=== PATIENT | female | born 1960 | race Caucasian/White ===

== ENCOUNTER → 2016-12-05 | Outpatient (CLI) | payer BC ==
--- NOTE | 2016-12-05 18:41 | US ---
EXAMINATION TYPE: US thyroid st tissue head/neck DATE OF EXAM: 12/05/2016 COMPARISON: NONE CLINICAL HISTORY: R22.1 Localized Swelling. swelling noted at sternal notch Scanned midline at area of fullness and no obvious abnormality seen. IMPRESSION: This limited exam fails to demonstrate any sonographic abnormality at the sternal notch which was the area of concern. The thyroid gland is symmetric in size.
== END | disposition home or self-care (01) ==
LOC: RADUSMAIN 17:59
PROVIDERS: ATTEND Family Medicine
DX: R22.1 Localized swelling, mass and lump, neck (principal)
CPT/HCPCS: 76536

== ENCOUNTER 2017-09-12 00:09 | Emergency (ER) | payer BC ==
--- NOTE | 2017-09-12 11:18 | XR ---
EXAMINATION TYPE: XR ankle complete LT DATE OF EXAM: 09/12/2017 COMPARISON: NONE HISTORY: Pain TECHNIQUE: 3 views of the left ankle are submitted for evaluation. FINDINGS: There is no evidence for fracture or dislocation. Ankle mortise is intact. Soft tissue swel ling laterally. IMPRESSION: 1. No evidence for acute fracture.
== END 2017-09-12 01:41 | disposition home or self-care (01) ==
LOC: EC 00:09
DX: S93.402A Sprain of unspecified ligament of left ankle, initial encounter (principal); Z88.2 Allergy status to sulfonamides; X50.1XXA Overexertion from prolonged static or awkward postures, initial encounter
CPT/HCPCS: 99283

== ENCOUNTER → 2017-09-25 | Outpatient (CLI) | payer BC ==
[2017-09-24 11:52] VITALS: BMI 25.6
[2017-09-25 13:48] VITALS: BP 144/87; PULSE 52; RESP 18; TEMP 98
--- NOTE | 2017-09-25 14:00 | P.CONS ---
History of Present Illness - Reason for Consult Consult date: 09/25/17 - Chief Complaint Abdominal wall pain - History of Present Illness This is a 56-year-old female with history of abdominal wall pain that started about 3 years ago after she had laparoscopic cholecystectomy . The pain gets worse in transitional positions when the patient places her abdominal muscles. The patient has been getting rectus sheath steroid injection at [facility] every 8 weeks with good results. She uses Lidoderm patches on her abdomen but she also give her very good relief of pain. 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 DRINKS 6 PACK OF BEER WEEKLY Past Drug Use History: None Reported - Past Family History Son(s) Family Medical History: Cancer Medications and Allergies Home Medications Medication Instructions Recorded Confirmed Type Atorvastatin Calcium [Lipitor] 20 mg PO HS 05/06/14 09/25/17 History Black Cohosh Root [Black Cohosh] 200 mg PO DAILY 05/06/14 09/25/17 History Cholecalciferol [Vitamin D3] 1,000 unit PO DAILY@1200 05/06/14 09/25/17 History Cyclobenzaprine [Flexeril] 10 mg PO HS 05/06/14 09/25/17 History Escitalopram [Lexapro] 20 mg PO HS 05/06/14 09/25/17 History Glucosamine-Chondr 500-400Mg 1 each PO DAILY 05/06/14 09/25/17 History Iron Polysaccharide Complex 150 mg PO SUTUWETHSA 05/06/14 09/25/17 History [Ferrex 150] Omeprazole 40 mg PO AC-BRKFST 05/06/14 09/25/17 History Pregabalin [Lyrica] 75 mg PO TID 05/06/14 09/25/17 History Vitamin E 1,000 unit PO DAILY 05/06/14 09/25/17 History Acetaminophen Tab [Tylenol] 500 mg PO HS 09/02/14 09/25/17 History Suvorexant [Belsomra] 10 mg PO HS PRN 09/02/14 09/25/17 History Bisoprolol Fumarate [Zebeta] 10 mg PO DAILY 09/24/17 09/25/17 History DULoxetine HCL [Cymbalta] 30 mg PO BID 09/24/17 09/25/17 History Levothyroxine Sodium [Levoxyl] 50 mcg PO DAILY 09/24/17 09/25/17 History Lidocaine 5% Patch [Lidoderm] 1 patch TOPICAL DAILY 09/24/17 09/25/17 History Lisinopril [Zestril] 10 mg PO DAILY 09/24/17 09/25/17 History Magnesium 100/99 1 each PO BID 09/24/17 09/25/17 History Allergies Allergy/AdvReac Type Severity Reaction Status Date / Time sulfamethoxazole Allergy Anaphylaxis Verified 09/25/17 13:31 [From Bactrim] trimethoprim [From Bactrim] Allergy Unknown Verified 09/25/17 13:31 adhesive tape AdvReac RED SKIN Verified 09/25/17 13:31 Physical Exam Vitals: Vital Signs Temp Pulse Resp BP 09/25/17 13:33 98.0 F 52 L 18 144/87 Intake and Output 09/24/17 09/25/17 09/25/17 22:59 06:59 14:59 Other: Weight 66.224 kg - Constitutional General appearance: average body habitus - EENT Eyes: PERRLA - Respiratory Respiratory: bilateral: CTA - Cardiovascular Rhythm: regular Heart sounds: normal: S1, S2 - Gastrointestinal The patient's pain gets worse when I asked her to sit up from the supine position with resistance. 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 I will schedule her to have rectus sheath injection with ultrasound guidance, which she has been getting at [facility] with good results.
== END | disposition home or self-care (01) ==
LOC: PNWHC3 12:03
PROVIDERS: ATTEND Anesthesiology
DX: G89.28 Other chronic postprocedural pain (principal); R10.9 Unspecified abdominal pain; G62.9 Polyneuropathy, unspecified; K21.9 Gastro-esophageal reflux disease without esophagitis; E78.5 Hyperlipidemia, unspecified; I10 Essential (primary) hypertension; M19.90 Unspecified osteoarthritis, unspecified site; E07.9 Disorder of thyroid, unspecified; Z87.891 Personal history of nicotine dependence; Z79.899 Other long term (current) drug therapy; Z79.891 Long term (current) use of opiate analgesic; Z88.2 Allergy status to sulfonamides; Z90.49 Acquired absence of other specified parts of digestive tract; Z91.048 Other nonmedicinal substance allergy status
CPT/HCPCS: 99211

== ENCOUNTER 2017-11-20 09:31 | Day surgery (SDC) | payer BC ==
[~2017-11-20 09:31] MED LIST: LACTATED RINGERS 1,000 ML IV SCH
[2017-11-20 10:02] VITALS: RESP 16; TEMP 98
[2017-11-20] MEDS ORDERED: LIDOCAINE 1% 20 ML VIAL (10MG/ML) FOR IV START INTRADERMA ONE (10:08)
[2017-11-20] MEDS ORDERED: IV FLUID CONTINUATION 1,000 ML IV ONE (11:17)
[2017-11-20 11:36] VITALS: BP 123/78; PULSE 55
--- NOTE | 2017-11-20 20:29 | P.PCN ---
Date of Procedure: 11/20/17 Procedure(s) Performed: Procedure= bilateral rectus sheath block under ultrasound guidance. Preoperative diagnosis= 1-chronic upper abdominal pain. 2- rectus sheath neuralgia. Postoperative diagnosis= same as preoperative diagnosis Complication = none Condition= stable Anesthesia= moderate sedation with intravenous Versed 2 mg , and fentanyl 100 micrograms and local infiltration with lidocaine 1% 5 mL Indication for the procedure= patient complaining of chronic abdominal pain. Description of the procedure= procedure risk and benefits discussed with the patient, including but not limited, risk of infection and bleeding, and ALLERGIC reaction to the medication and not complete pain relief and patient agreed with the preceding patient taken to the operating room, placed in supine position or standard monitors applied to the patient then after induction of anesthesia back prepped with chlorhexidine 3 times , and under sterile technique first and in the right side. Rectus sheath block by advancing the 22- gauge needle under ultrasound guidance advanced towards the posterior border of the rectus muscle on the right side, which is the location of the rectus sheath , then after negative aspiration for heme total of 10 ML of ropivacaine 0.5% mixed with 40 mg of Kenalog injected at the posterior border of the right side the rectus muscle (location of the rectus sheath ), then the same procedure done for the left side and I did the left side rectus sheath the block, the patient tolerated the procedure well without any convocation. Patient taken to the recovery room , discharged home after discharge criteria met
== END 2017-11-20 11:46 | disposition home or self-care (01) ==
LOC: ORPAIN 09:31
PROVIDERS: ATTEND Specialist
DX: G89.29 Other chronic pain (principal)
CPT/HCPCS: 76942; 64488; J2250; J3301; J3010; 20550; 99152

== ENCOUNTER → 2017-12-09 | Day surgery (SDC) | payer BC ==
[2017-12-04 08:31] VITALS: BMI 24.9
[~2017-12-09] MED LIST changes: -LACTATED RINGERS 1,000 ML IV SCH; +SODIUM CHLORIDE 0.9% 500 ML 500 ML IV SCH
[2017-12-09 07:59] VITALS: PULSE 60; TEMP 97.6
--- NOTE | 2017-12-09 08:23 | P.PCN ---
Date of Procedure: 12/09/17 Procedure(s) Performed: Procedure= bilateral rectus sheath block under ultrasound guidance. Preoperative diagnosis= 1-chronic upper abdominal pain. 2- rectus sheath neuralgia. Postoperative diagnosis= same as preoperative diagnosis Complication = none Condition= stable Anesthesia= moderate sedation with intravenous Versed 2 mg , and fentanyl 50 micrograms and local infiltration with lidocaine 1% 4 mL Indication for the procedure= patient complaining of chronic abdominal pain. Description of the procedure= procedure risk and benefits discussed with the patient, including but not limited, risk of infection and bleeding, and ALLERGIC reaction to the medication and not complete pain relief and patient agreed with the preceding patient taken to the operating room, placed in supine position or standard monitors applied to the patient then after induction of anesthesia back prepped with chlorhexidine 3 times , and under sterile technique first and in the right side. Rectus sheath block by advancing the 22- gauge needle under ultrasound guidance advanced towards the posterior border of the rectus muscle on the right side, which is the location of the rectus sheath , then after negative aspiration for heme total of 9 ML of ropivacaine 0.5% mixed with 40 mg of Kenalog injected at the posterior border of the right side the rectus muscle (location of the rectus sheath ), then the same procedure done for the left side and I did the left side rectus sheath the block, the patient tolerated the procedure well without any convocation. Patient taken to the recovery room , discharged home after discharge criteria met
[2017-12-09 09:09] VITALS: BP 129/73; RESP 15
== END ==
LOC: ORPAIN 07:37
PROVIDERS: ATTEND Specialist
DX: R10.10 Upper abdominal pain, unspecified (principal); G58.8 Other specified mononeuropathies; Z88.2 Allergy status to sulfonamides; Z91.09 Other allergy status, other than to drugs and biological substances; I10 Essential (primary) hypertension; E03.9 Hypothyroidism, unspecified
CPT/HCPCS: 20550; 64488; J2250; J3301; J3010; 99152

== ENCOUNTER → 2018-01-06 | Outpatient (CLI) | payer BC ==
[2018-01-06 13:28] VITALS: BP 138/83; PULSE 59; RESP 18
--- NOTE | 2018-01-06 14:18 | P.PAINPG ---
Subjective Progress Note Date: 01/06/18 This is a 56-year-old female with history of abdominal wall pain that started about 3 years ago after she had laparoscopic cholecystectomy . The pain gets worse when she changed position The patient had rectus sheath steroid injection done recently with good results. She uses Lidoderm patches on her abdomen but she also give her very good relief of pain. 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 DRINKS 6 PACK OF BEER WEEKLY Past Drug Use History: None Reported - Constitutional General appearance: average body habitus - EENT Eyes: PERRLA - Respiratory Respiratory: bilateral: CTA - Cardiovascular Rhythm: regular Heart sounds: normal: S1, S2 - Gastrointestinal Tenderness in the upper quadrants. No masses, abdominal pain increased with the changing position, abdomen soft Assessment and Plan Plan: This is a 57 years old female with the rectus sheath neuralgia, she could benefit from repeat rectus sheath steroid injection/block under ultrasound guidance I discontinue Flexeril (description had no benefit from it ),and start patient on baclofen 10 mg daily at bedtime Objective - Vital Signs Vital signs: Vital Signs Temp Pulse 59 L 01/06/18 13:17 Resp 18 01/06/18 13:17 BP 138/83 01/06/18 13:17 Pulse Ox 97 01/06/18 13:17 Intake & Output 01/05/18 01/06/18 01/06/18 18:59 06:59 18:59 Weight 63.503 kg PQRS Measure Charge Sheet Measure #130: Documentation of Current Meds in Medical Chart: Patient's medications documented in chart Measure #226: Tobacco Use: Screen & Cessation Intervention: Pt not a tobacco user Measure #111: Pneumonia Vaccination: Pneumococcal vaccine NOT administered or previously given Measure #47: Advance Care Plan: Advance care planning discussed & documented, pt chose/unable to give Measure #412: Opioid Treatment Agreement: No documentation of signed opioid treatment agreement Measure #408: Opioid Therapy Follow-up Evaluation: Patient had NO f/u eval minimum every 3 months during opioid therapy Measure #317: Preventitive Care & Scrn High Bld Press & F/U: Normal blood pressure, f/u not required Measure #128: Body Mass Index (BMI) Screening & Follow-up: BMI documented within normal parameters Measure #131: Pain Assessment & Follow-up: Pain positive & plan documented, Follow-up scheduled Measure #431: Unhealthy Alcohol Use Preventative Care & Scrn: Patient not identified as an unhealthy alcohol user PQRS Narrative: Smoking Status Former smoker Do You Want the Pneumonia No Vaccine AT THIS TIME? Blood Pressure 138/83 Pain Intensity [Bilateral 3 Abdomen] Scale Used Numeric (1 - 10) Home Medications: Ambulatory Orders Atorvastatin Calcium [Lipitor] 20 mg PO HS 05/06/14 Black Cohosh Root [Black Cohosh] 200 mg PO DAILY 05/06/14 Cholecalciferol [Vitamin D3] 1,000 unit PO DAILY@1200 05/06/14 Cyclobenzaprine [Flexeril] 10 mg PO HS 05/06/14 Escitalopram [Lexapro] 20 mg PO HS 05/06/14 Glucosamine-Chondr 500-400Mg 1 each PO DAILY 05/06/14 Iron Polysaccharide Complex [Ferrex 150] 150 mg PO SUTUWETHSA 05/06/14 Omeprazole 40 mg PO AC-BRKFST 05/06/14 Pregabalin [Lyrica] 75 mg PO TID 05/06/14 Vitamin E 1,000 unit PO DAILY 05/06/14 Acetaminophen Tab [Tylenol] 500 mg PO HS 09/02/14 Suvorexant [Belsomra] 10 mg PO HS PRN 09/02/14 Bisoprolol Fumarate [Zebeta] 10 mg PO DAILY 09/24/17 DULoxetine HCL [Cymbalta] 30 mg PO BID 09/24/17 Levothyroxine Sodium [Levoxyl] 50 mcg PO DAILY 09/24/17 Lidocaine 5% Patch [Lidoderm] 1 patch TOPICAL DAILY 09/24/17 Lisinopril [Zestril] 10 mg PO DAILY 09/24/17 Magnesium 100/99 1 each PO BID 09/24/17 Controlled Substance Measures - Controlled Substance Measures Is patient prescribed a controlled substance at discharge?: No When asked, does pt state using other controlled substances?: No If prescribed controlled substance>3 days was MAPS reviewed?: No If Rx opioid, was Start Talking consent form obtained?: No If opioid is for acute pain is fill amount 7 days or less?: No Was information provided regarding opioid addiction?: No
== END | disposition home or self-care (01) ==
LOC: PNWHC3 12:58
PROVIDERS: ATTEND Specialist
DX: G58.8 Other specified mononeuropathies (principal); M79.7 Fibromyalgia; K21.9 Gastro-esophageal reflux disease without esophagitis; E78.5 Hyperlipidemia, unspecified; I10 Essential (primary) hypertension; M19.90 Unspecified osteoarthritis, unspecified site; Z87.891 Personal history of nicotine dependence; Z90.49 Acquired absence of other specified parts of digestive tract; Z79.899 Other long term (current) drug therapy
CPT/HCPCS: 99211

== ENCOUNTER 2018-02-02 08:00 | Day surgery (SDC) | payer BC ==
[2018-01-29 14:02] VITALS: BMI 24.9
[2018-02-02] MEDS ORDERED: LACTATED RINGERS 1,000 ML IV ONE (08:32)
[2018-02-02 08:34] VITALS: RESP 16; TEMP 98.2
--- NOTE | 2018-02-02 09:31 | P.PCN ---
Date of Procedure: 02/02/18 Procedure(s) Performed: Procedure= bilateral rectus sheath block under ultrasound guidance. Preoperative diagnosis= 1-chronic upper abdominal pain. 2- rectus sheath neuralgia. Postoperative diagnosis= same as preoperative diagnosis Complication = none Condition= stable Anesthesia= moderate sedation with intravenous Versed 2 mg , and fentanyl 100 micrograms and local infiltration with lidocaine 1% 4 mL Indication for the procedure= patient complaining of chronic abdominal pain. Description of the procedure= procedure risk and benefits discussed with the patient, including but not limited, risk of infection and bleeding, and ALLERGIC reaction to the medication and not complete pain relief and patient agreed with the preceding patient taken to the operating room, placed in supine position or standard monitors applied to the patient then after induction of anesthesia back prepped with chlorhexidine 3 times , and under sterile technique first and in the right side. Rectus sheath block by advancing the 21- gauge [place] needle under ultrasound guidance advanced towards the posterior border of the rectus muscle on the right side, which is the location of the rectus sheath, then after negative aspiration for heme total of 9 ML of ropivacaine 0.5% mixed with 20 mg of Kenalog injected at the posterior border of the right side the rectus muscle (location of the rectus sheath ), then the same procedure done for the left side and I did the left side rectus sheath the block, the patient tolerated the procedure well without any convocation. Patient taken to the recovery room , discharged home after discharge criteria met
[2018-02-02] MEDS ORDERED: IV FLUID CONTINUATION 1,000 ML IV ONE (09:32)
[2018-02-02 09:48] VITALS: BP 129/87; PULSE 56
== END 2018-02-02 10:01 | disposition home or self-care (01) ==
LOC: ORPAIN 08:00
PROVIDERS: ATTEND Specialist
DX: G89.29 Other chronic pain (principal); G58.8 Other specified mononeuropathies; Z88.1 Allergy status to other antibiotic agents; Z88.2 Allergy status to sulfonamides; Z91.048 Other nonmedicinal substance allergy status
CPT/HCPCS: 20550; J2250; J3301; J3010

== ENCOUNTER → 2018-03-12 | Outpatient (CLI) | payer BC ==
--- NOTE | 2018-03-12 13:42 | P.PN ---
Subjective Progress Note Date: 03/12/18 This is a 56-year-old female with history of abdominal wall pain that started about 3 years ago after she had laparoscopic cholecystectomy . The pain gets worse when she changed position The patient had rectus sheath steroid injection done recently with good results. She uses Lidoderm patches on her abdomen but she also give her good relief of pain. 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 DRINKS 6 PACK OF BEER WEEKLY Past Drug Use History: None Reported - Constitutional General appearance: average body habitus - EENT Eyes: PERRLA - Respiratory Respiratory: bilateral: CTA - Cardiovascular Rhythm: regular Heart sounds: normal: S1, S2 - Gastrointestinal Tenderness in the upper quadrants. No masses, abdominal pain increased with the changing position, abdomen soft Assessment and Plan This is a 57 years old female with the rectus sheath neuralgia, pain improved after bilateral rectus sheath steroid injection/block under ultrasound guidance continue baclofen 10 mg daily at bedtime prescription for baclofen 10 mg daily at bedtime dispense 30 with 5 refills given and patient will follow up with the pain clinic when necessary PQRS Measure Charge Sheet Measure #130: Documentation of Current Meds in Medical Chart: Patient's medications documented in chart Measure #226: Tobacco Use: Screen & Cessation Intervention: Pt not a tobacco user Measure #111: Pneumonia Vaccination: Pneumococcal vaccine NOT administered or previously given Measure #47: Advance Care Plan: Advance care planning discussed & documented, pt chose/unable to give Measure #412: Opioid Treatment Agreement: No documentation of signed opioid treatment agreement Measure #408: Opioid Therapy Follow-up Evaluation: Patient had NO f/u eval minimum every 3 months during opioid therapy Measure #317: Preventitive Care & Scrn High Bld Press & F/U: Normal blood pressure, f/u not required Measure #128: Body Mass Index (BMI) Screening & Follow-up: BMI documented within normal parameters Measure #131: Pain Assessment & Follow-up: Pain positive & plan documented, Follow-up scheduled Measure #431: Unhealthy Alcohol Use Preventative Care & Scrn: Patient not identified as an unhealthy alcohol user PQRS Narrative: - Controlled Substance Measures Is patient prescribed a controlled substance at discharge?: No When asked, does pt state using other controlled substances?: No If prescribed controlled substance>3 days was MAPS reviewed?: No If Rx opioid, was Start Talking consent form obtained?: No If opioid is for acute pain is fill amount 7 days or less?: No Was information provided regarding opioid addiction?: No Objective - Vital Signs Vital signs: Intake & Output 03/11/18 03/12/18 03/12/18 18:59 06:59 18:59 Weight 64.41 kg
== END ==
LOC: PNWHC3 12:35
PROVIDERS: ATTEND Specialist
DX: G58.8 Other specified mononeuropathies (principal); Z79.899 Other long term (current) drug therapy; Z79.891 Long term (current) use of opiate analgesic; Z87.891 Personal history of nicotine dependence

== ENCOUNTER → 2018-05-25 | Day surgery (SDC) | payer BC ==
[2018-05-20 10:10] VITALS: BMI 25.1
[~2018-05-25] MED LIST changes: +IV FLUID CONTINUATION 1,000 ML IV ONE; +LACTATED RINGERS 1,000 ML IV ONE; +LIDOCAINE 1% 20 ML VIAL (10MG/ML) FOR IV START INTRADERMA ONE; -SODIUM CHLORIDE 0.9% 500 ML 500 ML IV SCH
[2018-05-25 07:16] VITALS: RESP 18; TEMP 97.2
--- NOTE | 2018-05-25 08:23 | P.PCN ---
Date of Procedure: 05/25/18 Operative Findings: Date 05/25/2018 Procedure bilateral rectus sheath block Diagnosis chronic postoperative pain Surgeon Kathleen beard MD Patient was seen in the preoperative area. Consent was taken H&P was updated on the morning. The patient is nothing by mouth. After discussion with the patient regarding the risks benefits and alternatives to the procedure patient consented to having a bilateral rectus sheath block. She had excellent relief from the procedure done in the past. We rolled the bed into the procedure room. Patient was placed on monitors. Patient is given oxygen at 2 L a minute. 2 mg of Versed along with 100 mg of fentanyl was given. Patient abdomen was prepped with chlorhexidine. Ultrasound was used and sterile fashion to identify the rectus sheath. After localizing the skin with 1% lidocaine to a miles on each side 20-gauge needle was used to identify the rectus and placed the needle in the rectus sheath. At that time after negative aspiration rectus sheath was identified and 20 ML's of 0.375% ropivacaine along with 5 mg of dexamethasone was placed on each side for a total of 10 mg of dexamethasone. Picture was saved from the ultrasound machine. Patient was sent to the recovery room in stable condition. She will follow-up with us in the clinic as needed
[2018-05-25 09:12] VITALS: BP 98/63; PULSE 52
--- NOTE | 2018-05-27 10:28 | CDI ---
PATIENT WAS GIVEN IV VERSED AND FENTANYL PER THE NOTE. IT IS MAC SEDATION. MONITORED ANESTHESIA CARE. Date: 05/27/18 CDS/Lead Systems Developer Name: Kami Huber Phone: If any questions, call Ana Maria Cannon Tube Cutter at [phone] Patient Name: Lori Durbin Admit Date: 05/25/18 Discharge Date: 05/25/18 ATTENTION: The [facility] Coding Staff appreciate your assistance in clarifying documentation. Please respond to the clarification below the line at the bottom and electronically sign. The [facility] Coding staff will review the response and follow-up if needed. Please note: Queries are made part of the Legal Health Record. If you have any questions, please contact the Tube Cutter. Dear Dr. Pierre, Please provide clarification as to the state of sedation provided. Operative note just state patient was give versed and fentanyl. On the Pain Procedure Record under Anesthesia Plan MAC is checked off. Please clarify if Mac/Unconscious or Moderate/conscious sedation was provided. Thank you for your kind consideration. MTDD
--- NOTE | 2018-05-29 13:11 | CDI ---
Date: 05/29/18 CDS/Civil Structural Engineer Name: Kami Huber Phone: If any questions, call Ana Maria Cannon Solar Consultant at [phone] Patient Name: Lori Durbin Admit Date: 05/25/18 Discharge Date: 05/25/18 ATTENTION: The [facility] Coding Staff appreciate your assistance in clarifying documentation. Please respond to the clarification below the line at the bottom and electronically sign. The [facility] Coding staff will review the response and follow-up if needed. Please note: Queries are made part of the Legal Health Record. If you have any questions, please contact the Solar Consultant. Dear Dr. Pierre, Please provide clarification as to the state of sedation provided. Operative note just state patient was give versed and fentanyl. On the Pain Procedure Record under Anesthesia Plan MAC is checked off. Please clarify if Mac/Unconscious or Moderate/conscious sedation was provided. Thank you for your response to the above query. When you stated MAC sedation was provided, did you mean conscious sedation. In order to capture the correct CPT code and for compliance, I need this clarified as one we can bill separately for (moderate conscious sedation) and the other we cannot (MAC) Thank you again for your kind consideration. MTDD
== END ==
LOC: ORPAIN 07:00
PROVIDERS: ATTEND Hospitalist
DX: G89.28 Other chronic postprocedural pain (principal)
CPT/HCPCS: 64488; J2250; J1100; J2001; J3010; 99152

== ENCOUNTER → 2018-09-22 | Outpatient (CLI) | payer BC ==
[2018-09-22 14:03] VITALS: RESP 16
[2018-09-22 14:09] VITALS: BP 127/77; PULSE 85
--- NOTE | 2018-09-22 14:21 | P.PN ---
Subjective Progress Note Date: 09/22/18 This is a 57-year-old lady with history of abdominal wall pain due to rectus abdominis entrapment neuropathy syndrome status post laparoscopic cholecystectomy. The patient has been having rectus sheath steroid injection bilaterally which was her usually 5-6 months of pain relief. The patient noticed that doing this injection at a level higher than her umbilicus with give her better and longer lasting pain relief. She also takes baclofen 10 mg at night. Her pain gets worse by moving deep breathing. By physical exam today she is alert and oriented 3 in no apparent distress She has tenderness on the anterior abdominal wall in the subcostal area bilaterally. We will plan to repeat the rectus sheath steroid injection bilaterally above the level of her umbilicus by about 2 inches. The patient has restricted the dose of steroids due to only 40 mg of Kenalog or 10 mg of Decadron divided. Objective - Vital Signs Vital signs: Vital Signs Temp Pulse 85 09/22/18 14:03 Resp 16 09/22/18 14:03 BP 127/77 09/22/18 14:03 Pulse Ox 97 09/22/18 14:03 Intake & Output 09/21/18 09/22/18 09/22/18 18:59 06:59 18:59 Weight 64.41 kg
== END ==
LOC: PNWHC3 13:34
PROVIDERS: ATTEND Anesthesiology
DX: G58.8 Other specified mononeuropathies (principal); R10.9 Unspecified abdominal pain; Z90.49 Acquired absence of other specified parts of digestive tract; Z79.899 Other long term (current) drug therapy
CPT/HCPCS: 99211

== ENCOUNTER 2018-10-12 06:56 | Day surgery (SDC) | payer BC ==
[2018-10-06 12:36] VITALS: BMI 25.1
[~2018-10-12 06:56] MED LIST changes: -IV FLUID CONTINUATION 1,000 ML IV ONE; -LACTATED RINGERS 1,000 ML IV ONE; +LACTATED RINGERS 1,000 ML IV SCH; -LIDOCAINE 1% 20 ML VIAL (10MG/ML) FOR IV START INTRADERMA ONE
[2018-10-12 07:08] VITALS: TEMP 96.8
[2018-10-12] MEDS ORDERED: LIDOCAINE 1% 20 ML VIAL (10MG/ML) FOR IV START INTRADERMA ONE (07:27)
--- NOTE | 2018-10-12 08:07 | P.PCN ---
Date of Procedure: 10/12/18 Procedure(s) Performed: Date 10/12/2018 Procedure bilateral rectus sheath block Diagnosis chronic postoperative pain Surgeon Gennaro Garcia MD Patient was seen in the preoperative area. Consent was taken H&P was updated on the morning. The patient is nothing by mouth. After discussion with the patient regarding the risks benefits and alternatives to the procedure patient consented to having a bilateral rectus sheath block. She had excellent relief from the procedure done in the past. We rolled the bed into the procedure room. Patient was placed on monitors. Patient is given oxygen at 2 L a minute. 2 mg of Versed along with 100 mg of fentanyl was given. Patient abdomen was prepped with chlorhexidine. Ultrasound was used and sterile fashion to identify the rectus sheath. After localizing the skin with 1% lidocaine to a miles on each side 20-gauge needle was used to identify the rectus and placed the needle in the rectus sheath. At that time after negative aspiration rectus sheath was identified and 20 ML's of 0.5% ropivacaine along with 10 mg of dexamethasone (10 mg total dose) was used in divided doses. Picture was saved from the ultrasound machine. Patient was sent to the recovery room in stable condition. She will follow-up with us in the clinic.
[2018-10-12] MEDS ORDERED: IV FLUID CONTINUATION 1,000 ML IV ONE (08:09)
[2018-10-12 08:50] VITALS: BP 97/60; PULSE 50; RESP 17
== END 2018-10-12 08:48 | disposition home or self-care (01) ==
LOC: ORPAIN 06:56
PROVIDERS: ATTEND Student in an Organized Health Care Education/Training Program
DX: G89.18 Other acute postprocedural pain (principal); G58.8 Other specified mononeuropathies; Z90.49 Acquired absence of other specified parts of digestive tract; Z79.52 Long term (current) use of systemic steroids
CPT/HCPCS: 64488; J2250; J1100; J2001; J3010; 20550; 64486; 99152

== ENCOUNTER → 2018-11-09 | Outpatient (CLI) | payer BC ==
[2018-11-09 12:27] VITALS: BP 123/75; PULSE 51
--- NOTE | 2018-11-09 12:47 | P.PN ---
Subjective Progress Note Date: 11/09/18 This is a follow-up visit for a 57-year-old female with history of abdominal wall pain that started about 3 years ago after she had laparoscopic cholecystectomy . The pain gets worse when she changed position The patient had rectus sheath steroid injection done recently with good results. She uses Lidoderm patches on her abdomen but she also give her good relief of pain. 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 DRINKS 6 PACK OF BEER WEEKLY Past Drug Use History: None Reported - Constitutional General appearance: average body habitus - EENT Eyes: PERRLA - Respiratory Respiratory: bilateral: CTA - Cardiovascular Rhythm: regular Heart sounds: normal: S1, S2 - Gastrointestinal Tenderness in the upper quadrants. No masses, abdominal pain increased with the changing position, abdomen soft Assessment and Plan This is a 57 years old female with the rectus sheath neuralgia, pain improved after bilateral rectus sheath steroid injection/block under ultrasound guidance continue baclofen 10 mg daily at bedtime prescription for baclofen 10 mg daily at bedtime dispense 30 with 2 refills given and patient will follow up with the pain clinic when necessary PQRS Measure Charge Sheet Measure #130: Documentation of Current Meds in Medical Chart: Patient's medications documented in chart Measure #226: Tobacco Use: Screen & Cessation Intervention: Pt not a tobacco user Measure #111: Pneumonia Vaccination: Pneumococcal vaccine NOT administered or previously given Measure #47: Advance Care Plan: Advance care planning discussed & documented, pt chose/unable to give Measure #412: Opioid Treatment Agreement: No documentation of signed opioid treatment agreement Measure #408: Opioid Therapy Follow-up Evaluation: Patient had NO f/u eval minimum every 3 months during opioid therapy Measure #317: Preventitive Care & Scrn High Bld Press & F/U: Normal blood pressure, f/u not required Measure #128: Body Mass Index (BMI) Screening & Follow-up: BMI documented within normal parameters Measure #131: Pain Assessment & Follow-up: Pain positive & plan documented, Follow-up scheduled Measure #431: Unhealthy Alcohol Use Preventative Care & Scrn: Patient not identified as an unhealthy alcohol user PQRS Narrative: - Controlled Substance Measures Is patient prescribed a controlled substance at discharge?: No When asked, does pt state using other controlled substances?: No If prescribed controlled substance>3 days was MAPS reviewed?: No If Rx opioid, was Start Talking consent form obtained?: No If opioid is for acute pain is fill amount 7 days or less?: No Was information provided regarding opioid addiction?: No Objective - Vital Signs Vital signs: Vital Signs Temp Pulse 51 L 11/09/18 12:17 Resp BP 123/75 11/09/18 12:17 Pulse Ox Intake & Output 11/08/18 11/09/18 11/09/18 18:59 06:59 18:59 Weight 59.874 kg
== END ==
LOC: PNWHC3 12:05
PROVIDERS: ATTEND Specialist
DX: G58.8 Other specified mononeuropathies (principal); Z79.899 Other long term (current) drug therapy; Z87.891 Personal history of nicotine dependence
CPT/HCPCS: 99211

== ENCOUNTER 2019-01-25 08:59 | Day surgery (SDC) | payer BC ==
[2019-01-20 10:46] VITALS: BMI 23.9
[2019-01-25 09:14] VITALS: TEMP 97.1
[2019-01-25] MEDS ORDERED: IV FLUID CONTINUATION 1,000 ML IV ONE (10:17)
[2019-01-25 10:33] VITALS: BP 111/64; PULSE 48; RESP 15
--- NOTE | 2019-01-25 11:03 | P.PCN ---
Date of Procedure: 01/25/19 Postoperative Diagnosis: Procedure: bilateral rectus sheath block Diagnosis chronic postoperative pain Surgeon Sandra Caro MD IV sedation with Versed and fentanyl, sedation time 9 minutes Ultrasound was used for the procedure to visualize rectus sheath and spread of treatment solution. Patient was seen in the preoperative area. Consent was taken H&P was updated on the morning. The patient is nothing by mouth. After discussion with the patient regarding the risks benefits and alternatives to the procedure patient consented to having a bilateral rectus sheath block. She had excellent relief from the procedure done in the past. We rolled the bed into the procedure room. Patient was placed on monitors. Patient is given oxygen at 2 L a minute. 2 mg of Versed along with 100 mg of fentanyl was given. Patient abdomen was prepped with chlorhexidine. Ultrasound was used and sterile fashion to identify the rectus sheath. A 21-gauge 3 inch needle was used to identify the rectus and the needle was placed in the rectus sheath under continuous ultrasound guidance. At that time after negative aspiration 10 ML's of 0.5% ropivacaine along with 20 mg of Kenalog was injected per side. A total of 40 mg of Kenalog was used. Picture was saved from the ultrasound machine. Patient was sent to the recovery room in stable condition. She will follow-up with us in the clinic.
== END 2019-01-25 10:49 | disposition home or self-care (01) ==
LOC: ORPAIN 08:59
PROVIDERS: ATTEND Anesthesiology
DX: G89.28 Other chronic postprocedural pain (principal); Z88.2 Allergy status to sulfonamides; Z91.048 Other nonmedicinal substance allergy status
CPT/HCPCS: 20550; J2250; J3301; J3010

== ENCOUNTER → 2019-03-02 | Outpatient (CLI) | payer BC ==
[2019-03-02 13:35] VITALS: BP 148/94; PULSE 60; RESP 16
--- NOTE | 2019-03-02 13:38 | P.PAINPG ---
Subjective Progress Note Date: 03/02/19 This is a 56-year-old female with history of abdominal wall pain that started about 3 years ago after she had laparoscopic cholecystectomy . The pain gets worse when she changed position The patient had rectus sheath steroid injection done recently with good results, she denies any change in bowel movement or urination she denies any motor or sensory deficit, she continued to use baclofen 10 mg daily at bedtime she denies any side effects of the medication Objective - Exam Physical Examinations : -Constitutiona : Cooperative , not in acute distress . -HEENT : nech : supple , no Lymphadenopathy , normal thyroid size . : eyes : no ptosis , no icterus, no photophobia . : ENT : normal of hearing , normal oropharynx , no Thrush . - Respiratory : Chest clear to auscultations Bilaterally , no wheezing , no Rhonchi . - Cardiovascula : regular rate and rhythem , S1 , S2 , no S3 , no S4. - Gastrointestina : abdomen soft mild tenderness , bowel sounds , no organomegally . - Genitourinary : Defferred . - neurologic : Cranial nerve II to XII intact , no focal neurological deffecit . -psychatric : alert , oriented X 3 , appropriate affect , intact judgment and insight . -Lymphatic : no Lymphadenopathy . - musculoskeltal : Lumber spine moter stegnth lower extremities ,thigh and legs 5/5 Right side , 5/5 Left side Assessment and Plan Plan: Assessment and plan= chronic abdominal pain, patient had excellent pain relief after bilateral rectus sheath the block Patient will follow up in the pain clinic when necessary, at that time we'll repeat bilateral rectus sheath block Time with Patient: Less than 30 PQRS Measure Charge Sheet Measure #130: Documentation of Current Meds in Medical Chart: Patient's medications documented in chart Measure #226: Tobacco Use: Screen & Cessation Intervention: Pt not a tobacco user Measure #111: Pneumonia Vaccination: Pneumococcal vaccine administered or previously received Measure #47: Advance Care Plan: Advance care planning discussed & documented, pt chose/unable to give Measure #412: Opioid Treatment Agreement: No documentation of signed opioid treatment agreement Measure #408: Opioid Therapy Follow-up Evaluation: Patient had NO f/u eval minimum every 3 months during opioid therapy Measure #317: Preventitive Care & Scrn High Bld Press & F/U: Pre-hypertensive or hypertensive BP documented, pt will f/u with PCP Measure #128: Body Mass Index (BMI) Screening & Follow-up: BMI documented ABOVE normal parameters - f/u documented Measure #131: Pain Assessment & Follow-up: Pain positive & plan documented, Follow-up scheduled Measure #431: Unhealthy Alcohol Use Preventative Care & Scrn: Patient not identified as an unhealthy alcohol user PQRS Narrative: Smoking Status Former smoker Pain Intensity [Abdomen] 4 Scale Used Numeric (1 - 10) Hx Alcohol Use (MH) No Home Medications: Ambulatory Orders Atorvastatin Calcium [Lipitor] 20 mg PO HS 05/06/14 Black Cohosh Root [Black Cohosh] 200 mg PO DAILY 05/06/14 Cholecalciferol [Vitamin D3] 1,000 unit PO HS 05/06/14 Escitalopram [Lexapro] 10 mg PO HS 05/06/14 Glucosamine-Chondr 500-400Mg 1 each PO DAILY 05/06/14 Pregabalin [Lyrica] 75 mg PO BID 05/06/14 Bisoprolol Fumarate [Zebeta] 10 mg PO DAILY 09/24/17 DULoxetine HCL [Cymbalta] 30 mg PO HS 09/24/17 Levothyroxine Sodium [Levoxyl] 50 mcg PO SUTUWETHSA 09/24/17 Lidocaine 5% Patch [Lidoderm] 1 patch TOPICAL DAILY 09/24/17 Lisinopril [Zestril] 10 mg PO DAILY 09/24/17 Magnesium 100/99 1 each PO BID 09/24/17 Baclofen [Lioresal] 10 mg PO HS 01/29/18 Esomeprazole Magnesium [NexIUM] 20 mg PO DAILY 10/06/18 Ferrous Sulfate [Feosol] 65 mg PO DAILY 01/20/19 Controlled Substance Measures - Controlled Substance Measures Is patient prescribed a controlled substance at discharge?: No
== END | disposition home or self-care (01) ==
LOC: PNWHC3 12:11
PROVIDERS: ATTEND Specialist
DX: Z53.9 Procedure and treatment not carried out, unspecified reason (principal)

== ENCOUNTER → 2019-07-23 | Outpatient (CLI) | payer BC | END | disposition home or self-care (01) | LOC: LABWHC1 10:07 | PROVIDERS: ATTEND Internal Medicine | DX: Z11.59 Encounter for screening for other viral diseases (principal) ==

== ENCOUNTER 2019-07-27 09:29 | Day surgery (SDC) | payer BC ==
[2019-07-26 13:29] VITALS: BMI 23.9
[2019-07-27 10:02] VITALS: PULSE 57; TEMP 97
[2019-07-27] MEDS ORDERED: ROPIVACAINE 5MG/ML 20ML VIAL ONE (10:07)
[2019-07-27] MEDS ORDERED: fentaNYL (PF) 50 MCG/ML 2 ML AMP ONE (10:07)
[2019-07-27] MEDS ORDERED: methylPREDNISolone ACETATE 40 MG/ML 1 ML VIAL ONE (10:07)
[2019-07-27] MEDS ORDERED: MIDAZOLAM 2 MG/2 ML VIAL ONE (10:07)
--- NOTE | 2019-07-27 10:15 | P.PCN ---
Date of Procedure: 07/27/19 Preoperative Diagnosis: abdominal pain Postoperative Diagnosis: same Procedure(s) Performed: b/l rectus sheath block with ultrasound guidance Anesthesia: MAC (With IV Versed and fentanyl) Surgeon: Kathleen Pierre Description of Procedure: Patient was seen in the preoperative area and answered all questions. Consent was signed. Patient presents with abdominal pain after hernia repair in the abdomen. She's had this procedure done before with excellent results. Patient was brought to the procedure room and laid in the supine position. The abdomen is prepped with chlorhexidine. Ultrasound was used to identify the rectus abdominis muscle and the rectus sheath. After identification, a 21-gauge 4 inch needle was used to reach the rectus sheath. Using hydrodissection area was identified. At that time after negative dissection, mixture of 0.5% ropivacaine and 5 mL of saline with 20 mg of Depo-Medrol were injected on each side. Same procedure was done on the opposite side under ultrasound guidance. The ultrasound was used to identify the spread of medication and avoid any vascular or neural structures. The area was cleansed and bandages placed. The patient was sent to the PACU in stable condition
[2019-07-27] MEDS ORDERED: IV FLUID CONTINUATION 650 ML IV ONE (10:27)
[2019-07-27 10:51] VITALS: BP 110/65; RESP 18
== END 2019-07-27 10:53 | disposition home or self-care (01) ==
LOC: ORPAIN 09:29
PROVIDERS: ATTEND Hospitalist
DX: R10.9 Unspecified abdominal pain (principal); Z88.2 Allergy status to sulfonamides; Z78.0 Asymptomatic menopausal state; Z91.09 Other allergy status, other than to drugs and biological substances
CPT/HCPCS: 20550; J2250; J1030; J3010; J2795; 99152

== ENCOUNTER → 2019-09-22 | Outpatient (CLI) | payer BC ==
[2019-09-22 10:20] VITALS: BP 124/81; PULSE 54; RESP 18; TEMP 97.3
--- NOTE | 2019-09-22 10:50 | P.PAINPG ---
Subjective Progress Note Date: 09/22/19 This is a 58-year-old female with history of abdominal wall pain that started about 5 years ago after she had laparoscopic cholecystectomy. Her pain has been well controlled with rectus sheath steroid injections with good results, done most recently on 07/27/2019. She returns today for follow-up. She reports good ongoing pain relief from this procedure. Pain today is rated as 4/10, located in the bilateral upper quadrant, described as stabbing. Pain is worse with activity, bending, lifting and better with medications, lying down. She continues to use baclofen 10 mg daily at bedtime with good benefit. She denies side effects from the medications. She continues to exercise and do yoga. Review of systems is negative for chest pain, shortness of breath, new onset weakness, numbness/tingling, abdominal pain, malaise, fever, night sweats, chills, homicidal or suicidal ideation, or bowel or bladder incontinence. Objective Physical exam: Vitals: Reviewed in EMR GENERAL: Well appearing, in no acute distress PSYCH: Mood and affect is appropriate. Awake, alert, and oriented SKIN: Skin color, texture, turgor normal, no rashes or lesions HEENT: Normocephalic, atraumatic. EOM intact CV: No pedal edema RESP: Respirations are unlabored, no audible wheezing GI: Abdomen non-distended. Surgical scar visible and well healed. Mild tenderness to palpation along bilateral rectus sheath. MUSCULOSKELETAL: Bilateral lower extremity strength is normal and symmetric. No atrophy or tone abnormalities are noted. Gait: Gait is normal NEUR: Cranial nerves are grossly intact Assessment and Plan Plan: Assessment and plan= chronic abdominal pain, patient has good ongoing pain relief after bilateral rectus sheath the block. We will plan on repeating the procedure in approximately 4-6 weeks. We will plan on using 0.75% bupivacaine or 4% lidocaine along with steroid for the procedure. PQRS Measure Charge Sheet Measure #130: Documentation of Current Meds in Medical Chart: Patient's me dications documented in chart Measure #226: Tobacco Use: Screen & Cessation Intervention: Pt not a tobacco user Measure #111: Pneumonia Vaccination: Pneumococcal vaccine not administered or previously received Measure #47: Advance Care Plan: Advance care planning discussed & documented, pt chose/unable to give Measure #412: Opioid Treatment Agreement: No documentation of signed opioid treatment agreement Measure #408: Opioid Therapy Follow-up Evaluation: Patient had NO f/u eval minimum every 3 months during opioid therapy Measure #317: Preventitive Care & Scrn High Bld Press & F/U: Blood pressure within normal limits Measure #128: Body Mass Index (BMI) Screening & Follow-up: BMI documented within normal parameters Measure #131: Pain Assessment & Follow-up: Pain positive & plan documented, Follow-up scheduled Measure #431: Unhealthy Alcohol Use Preventative Care & Scrn: Patient not identified as an unhealthy alcohol user PQRS Measure Charge Sheet PQRS Narrative: Smoking Status Former smoker Pain Intensity [Abdomen] 4 Scale Used Numeric (1 - 10) Hx Alcohol Use (MH) No Home Medications: Ambulatory Orders Atorvastatin Calcium [Lipitor] 20 mg PO HS 05/06/14 Black Cohosh Root [Black Cohosh] 540 mg PO DAILY 05/06/14 Cholecalciferol [Vitamin D3] 5,000 unit PO HS 05/06/14 Escitalopram [Lexapro] 20 mg PO HS 05/06/14 Pregabalin [Lyrica] 75 mg PO TID 05/06/14 Bisoprolol Fumarate [Zebeta] 10 mg PO DAILY 09/24/17 DULoxetine HCL [Cymbalta] 30 mg PO HS 09/24/17 Levothyroxine Sodium [Levoxyl] 50 mcg PO SUTUWETHSA 09/24/17 Lidocaine 5% Patch [Lidoderm] 1 patch TOPICAL DAILY 09/24/17 lisinopriL [Zestril] 20 mg PO DAILY 09/24/17 Baclofen [Lioresal] 10 mg PO HS 01/29/18 Esomeprazole Magnesium [NexIUM] 20 mg PO DAILY 10/06/18 Ferrous Sulfate [Feosol] 65 mg PO DAILY 01/20/19 Fish Oil/Dha/Epa [Fish Oil 1,200 mg Fish Oil] 1 each PO DAILY 07/26/19 Glucosam/Vijay-Msm1/C/Brent/Bosw [Mkxkfdvyaia-Oqotztiiapz-IKN Tb] 1 each PO DAILY 07/26/19 Magnesium W/ Potassium 1 tab PO BID 07/26/19 Controlled Substance Measures - Controlled Substance Measures Is patient prescribed a controlled substance at discharge?: No
== END | disposition home or self-care (01) ==
LOC: PNWHC3 09:25
PROVIDERS: ATTEND Anesthesiology
DX: G89.29 Other chronic pain (principal); R10.9 Unspecified abdominal pain; Z87.891 Personal history of nicotine dependence; Z79.891 Long term (current) use of opiate analgesic; Z79.899 Other long term (current) drug therapy; Z79.890 Hormone replacement therapy; Z90.49 Acquired absence of other specified parts of digestive tract
CPT/HCPCS: 99211

== ENCOUNTER → 2019-11-08 | Outpatient (CLI) | payer BC ==
[2019-11-08 13:31] VITALS: BP 140/92; PULSE 57; RESP 14; TEMP 98.2
--- NOTE | 2019-11-08 13:48 | P.PN ---
Subjective Progress Note Date: 11/08/19 This is a 58-year-old lady with chronic anterior abdominal wall pain due to previous laparoscopic cholecystectomy. The patient has been getting rectus sheath injection which has helped her pain significantly. She has been getting these injections every approximately 8 weeks. It has been about 3 weeks since her last injection and her pain has improved significantly. Patient denies new-onset weakness, bowel/bladder incontinence, or any other signs or symptoms of cauda equina syndrome. There are no signs of acute intoxication, and no indications of medication diversion or overuse. In addition to above, 13-point review of systems is also negative for chest pa in, shortness of breath, changes in vision, changes in hearing, new onset weakness, abdominal pain, diarrhea, extreme fatigue, malaise, fever, skin changes, homicidal or suicidal ideation, or bowel or bladder incontinence. Vital Signs: Reviewed in EMR Gen: AAOx3, NAD HEENT: PERRLA,hearing grossly normal Pulm: resp unlabored Heart: Regular Positive tenderness in the anterior abdomen at the rectus muscles bilaterally, approximately 2 inches above the umbilicus. Neuro: CN II-XII grossly intact, Imaging: Reviewed in EMR/chart Assessment: Anterior rectus cutaneous nerve entrapment syndrome Plan: 1. Explanation: Opioid and psychological risk scores were reviewed. Diagnoses, prognoses, and multiple treatment options including but not limited to physical therapy, interventional therapies, adjuvant medical therapies, narcotic medication therapies, and surgery were discussed with the patient and all questions were answered to the patient's satisfaction. 2. Opioid agreement: No opioids are prescribed 3. Counseling: The patient was counseled extensively on SMOKING CESSATION, BODY MASS INDEX, EXERCISE. Specifically, the patient was instructed regarding the importance of smoking cessation, obesity, and exercise in the context of both chronic pain and overall health. 4. Procedures: Scheduled for rectus sheath block with ultrasound guidance as needed 5. Consultations: None 6. Investigations: None 7. Medications: None 8. Disposition: Return to clinic on an as-needed basis. The patient will call when she thinks that her pain is worse enough to schedule an injection. 9. Maps were reviewed and were appropriate. Objective - Vital Signs Vital signs: Vital Signs Temp 98.2 F 11/08/19 13:23 Pulse 57 L 11/08/19 13:23 Resp 14 11/08/19 13:23 BP 140/92 11/08/19 13:23 Pulse Ox 99 11/08/19 13:23
== END | disposition home or self-care (01) ==
LOC: PNWHC3 13:08
PROVIDERS: ATTEND Anesthesiology
DX: G58.8 Other specified mononeuropathies (principal)
CPT/HCPCS: 99211

== ENCOUNTER 2020-02-01 09:30 | Day surgery (SDC) | payer BC ==
[2020-01-31 11:27] VITALS: BMI 23.9
[2020-02-01 09:54] VITALS: TEMP 97.5
[2020-02-01] MEDS ORDERED: BUPIVACAINE (PF) 0.75% 10 ML VIAL ONE (10:35)
[2020-02-01] MEDS ORDERED: TRIAMCINOLONE ACETONIDE 40 MG/ML 1 ML VIAL ONE (10:35)
[2020-02-01] MEDS ORDERED: MIDAZOLAM 2 MG/2 ML VIAL ONE (10:35)
[2020-02-01] MEDS ORDERED: fentaNYL (PF) 50 MCG/ML 2 ML AMP ONE (10:35)
[2020-02-01 11:10] VITALS: RESP 16
--- NOTE | 2020-02-01 11:10 | P.PCN ---
Date of Procedure: 02/01/20 Surgeon: Milena Anand Pathology: none sent Condition: stable Disposition: PACU Description of Procedure: Procedure= bilateral rectus sheath block under ultrasound guidance. Preoperative diagnosis= 1-chronic upper abdominal wall pain. 2- anterior rectus sheath syndrome. Postoperative diagnosis= same as preoperative diagnosis Complication = none Condition= stable Anesthesia= moderate sedation with intravenous Versed 2 mg , and fentanyl 100 micrograms and local infiltration with lidocaine 1% 4 mL Indication for the procedure= patient complaining of chronic abdominal wall pain. Description of the procedure= procedure risk and benefits discussed with the patient, including but not limited, risk of infection and bleeding, and ALLERGIC reaction to the medication and not complete pain relief and patient agreed with the preceding patient taken to the operating room, placed in supine position or standard monitors applied to the patient then skin was prepped with chlorhexidine , and under sterile technique I started first with the right side. A 22-gauge 3-1/2 inch Quincke spinal needle was advanced under ultrasound guidance to the posterior rectus sheath layer and then I injected 1 mL of the solution which showed intramuscular injection I then further advanced the needle by 1 mm and with further injection of the solution the rectus muscle started to peel off the posterior rectus sheath I then injected 10 MLS of a solution made up of 9.5 MLS Marcaine 0.75% +20 mg of Kenalog. The left side was done in the same manner . A total of 40 mg of Kenalog and 20 MLS of bupivacaine 0.75% were injected. During injection color-flow Doppler was used to avoid any vascular damage. The peritoneum was clearly identified and avoided before injecting the treating solution on the posterior rectus sheath. the patient tolerated the procedure well without any complications. Patient was obtained taken to the recovery room , discharged home after discharge criteria were met
[2020-02-01] MEDS ORDERED: IV FLUID CONTINUATION 1,000 ML IV ONE (11:20)
[2020-02-01 11:21] VITALS: BP 114/79; PULSE 52
== END 2020-02-01 11:35 | disposition home or self-care (01) ==
LOC: ORPAIN 09:30
PROVIDERS: ATTEND Anesthesiology
DX: G89.29 Other chronic pain (principal); R10.10 Upper abdominal pain, unspecified; M67.88 Other specified disorders of synovium and tendon, other site; I10 Essential (primary) hypertension; Z88.2 Allergy status to sulfonamides; Z91.09 Other allergy status, other than to drugs and biological substances; Z78.0 Asymptomatic menopausal state
CPT/HCPCS: 20550; 76942; J2250; J3301; J3010; 99152

== ENCOUNTER → 2020-02-24 | Outpatient (CLI) | payer BC ==
--- NOTE | 2020-02-26 16:34 | CT ---
EXAMINATION TYPE: CT abdomen wo/w con DATE OF EXAM: 02/24/2020 COMPARISON: 04/11/2015 HISTORY: 59-year-old female K86.1, chronic pancreatitis TECHNIQUE: Contiguous axial scanning of the abdomen before and after administration of 100 ml Isovue 300 IV contrast. Arterial phase and delayed portal venous phase imaging as well as coronal/sagittal reconstructions performed. CT DLP: 518 mGycm Automated exposure control for dose reduction was used. FINDINGS: Heart normal size without pericardial effusion. Lung bases clear without pleural effusion. No focal liver lesion or biliary ductal dilatation. Portal venous system is patent. Cholecystectomy clips with interval gallbladder resection. Adrenal glands and spleen within normal limits. Mild bilateral pelviectasis probably transient. No nephrolithiasis. Symmetric uptake of contrast from both kidneys. New punctate microcalcifications head and neck of the pancreas and a couple within the pancreatic bod y. Sight interval atrophy of the pancreatic tail from prior exam. Nodular soft tissue area measuring 1.5 cm at the pancreatic tail also noted, refer to axial series 8 image 40. This could represent a pr eserved lobule of pancreatic parenchyma. Mild atherosclerotic calcifications abdominal aorta without aneurysm. Normal appendix. Fluid-filled colon. Mild wall thickening involving the ascending colon, refer to ax ial image 73. Some additional scattered short segment wall thickening such as at the splenic flexure of the colon, axial image 57. No dilated small bowel, free fluid, or free air. No mesenteric or retroperitoneal lymphadenopathy. Bones: Mild facet arthropathy lower lumbar spine. No osseous destructive process. IMPRESSION: 1. COMPARED TO 2016, PUNCTATE CALCIFICATIONS HAVE DEVELOPED WITHIN THE PANCREATIC HEAD AND NECK AN D A COUPLE WITHIN THE BODY OF THE PANCREAS. FINDINGS SUGGEST SEQUELA OF CHRONIC PANCREATITIS. 2. A NODULAR 1.5 CM SOFT TISSUE REGION AT THE TAIL OF THE PANCREAS COULD REPRESENT A PROMINENT LOBULE OF PANCREATIC PARENCHYMA. 2-3 MONTH FOLLOW-UP CT RECOMMENDED TO ENSURE STABILITY AND EXCLUDE THE POS SIBILITY OF A EARLY SOLID MASS. CORRELATE WITH TUMOR MARKERS IN THE MEANWHILE. 3. LIQUID STOOL AND MILD TO MODERATE WALL THICKENING ALONG THE ASCENDING COLON AND WITHIN A FEW SCATT ERED SHORT SEGMENTS SUCH THE SPLENIC FLEXURE. CORRELATE FOR NONSPECIFIC INFECTIOUS OR INFLAMMATORY COLITIS.
== END | disposition home or self-care (01) ==
LOC: RADCTMAIN 10:55
PROVIDERS: ATTEND Internal Medicine
DX: K86.89 Other specified diseases of pancreas (principal); K63.89 Other specified diseases of intestine
CPT/HCPCS: 74170; Q9967

== ENCOUNTER → 2020-03-20 | Outpatient (CLI) | payer BC ==
--- NOTE | 2020-03-20 11:13 | P.PN ---
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 The patient's pain responds only to rectus sheath injections under ultrasound guidance. Last injection improved her pain significantly and she rates her pain at 2 out of 10 today. Patient denies new-onset weakness, bowel/bladder incontinence, or any other signs or symptoms of cauda equina syndrome. There are no signs of acute intoxication, and no indications of medication diversion or overuse. In addition to above, 13-point review of systems is also negative for chest pain, shortness of breath, changes in vision, changes in hearing, new onset weakness, abdominal pain, diarrhea, extreme fatigue, malaise, fever, skin changes, homicidal or suicidal ideation, or bowel or bladder incontinence. Vital Signs: Reviewed in EMR Gen: AAOx3, NAD HEENT: PERRLA,hearing grossly normal Pulm: resp unlabored Neck: supple, trachea midline Neuro exam of the lower extremities: Straight leg raising test: Randall's test: Range of motion of the lumbar spine: Facet loading test: Tenderness in the paravertebral musculature: Positive tenderness in the anterior abdominal wall muscles Neuro: CN II-XII grossly intact, Imaging: Reviewed in EMR/chart Assessment: Abnormal wall pain due to rectus sheath syndrome Plan: 1. Explanation: Opioid and psychological risk scores were reviewed. Diagnoses, prognoses, and multiple treatment options including but not limited to physical therapy, interventional therapies, adjuvant medical therapies, narcotic medication therapies, and surgery were discussed with the patient and all qu estions were answered to the patient's satisfaction. 2. Opioid agreement: Signed with the patient and the patient is warned not to use opioids while driving or before driving and not to combine opioids with benzodiazepines or alcohol. 3. Counseling: The patient was counseled extensively on SMOKING CESSATION, BODY MASS INDEX, EXERCISE. Specifically, the patient was instructed regarding the importance of smoking cessation, obesity, and exercise in the context of both chronic pain and overall health. 4. Procedures: None for now 5. Consultations: None 6. Investigations: None 7. Medications: None 8. Disposition: Return to clinic on an as-needed basis 9. Maps were reviewed and were appropriate.
[2020-03-20 11:20] VITALS: BP 125/85; PULSE 60; RESP 18; TEMP 97.9
== END | disposition home or self-care (01) ==
LOC: PNWHC3 10:55
PROVIDERS: ATTEND Anesthesiology
DX: R10.9 Unspecified abdominal pain (principal)
CPT/HCPCS: 99211

== ENCOUNTER 2020-06-13 08:02 | Day surgery (SDC) | payer BC ==
[2020-06-08 09:51] VITALS: BMI 23.9
[2020-06-13 08:18] VITALS: TEMP 97.8
[2020-06-13] MEDS ORDERED: LACTATED RINGERS 1,000 ML IV ONE (08:24)
[2020-06-13] MEDS ORDERED: ROPIVACAINE 5MG/ML 20ML VIAL ONE (08:29)
[2020-06-13] MEDS ORDERED: methylPREDNISolone ACETATE 40 MG/ML 1 ML VIAL ONE (08:29)
[2020-06-13] MEDS ORDERED: fentaNYL (PF) 50 MCG/ML 2 ML AMP ONE (08:29)
[2020-06-13] MEDS ORDERED: MIDAZOLAM 2 MG/2 ML VIAL ONE (08:29)
--- NOTE | 2020-06-13 08:47 | P.PCN ---
Date of Procedure: 06/13/20 Procedure(s) Performed: Procedure= bilateral rectus sheath block under ultrasound guidance. Preoperative diagnosis= 1-chronic upper abdominal pain. 2- rectus sheath neuralgia.(Bilateral ) Postoperative diagnosis= same as preoperative diagnosis Complication = none Condition= stable Anesthesia= moderate sedation with intravenous Versed 2 mg , and fentanyl 100 micrograms and local infiltration with lidocaine 1% 4 mL Indication for the procedure= patient complaining of chronic abdominal pain. Description of the procedure= procedure risk and benefits discussed with the patient, including but not limited, risk of infection and bleeding, and ALLERGIC reaction to the medication and not complete pain relief and patient agreed with the preceding patient taken to the operating room, placed in supine position or standard monitors applied to the patient then after induction of anesthesia back prepped with chlorhexidine 3 times , and under sterile technique first and in the right side. Rectus sheath block by advancing the 21-gauge Pujunk needle under ultrasound guidance advanced towards the posterior border of the rectus muscle on the right side, which is the location of the rectus sheath, then after negative aspiration for heme total of 10 ML of ropivacaine 0.5% mixed with 40 mg of Depo-Medrol injected at the posterior border of the right side the rectus muscle (location of the rectus sheath ), then the same procedure done for the left side and I did the left side rectus sheath the block, the patient tolerated the procedure well without any convocation. Patient taken to the recovery room , discharged home after discharge criteria met
[2020-06-13] MEDS ORDERED: IV FLUID CONTINUATION 1,000 ML IV ONE (08:52)
[2020-06-13 08:56] VITALS: RESP 16
[2020-06-13 09:12] VITALS: BP 102/66; PULSE 57
== END 2020-06-13 09:24 | disposition home or self-care (01) ==
LOC: ORPAIN 08:02
PROVIDERS: ATTEND Specialist
DX: G58.8 Other specified mononeuropathies (principal); R10.9 Unspecified abdominal pain
CPT/HCPCS: 64488; J2250; J1030; J3010; J2795; 20550; 99152

== ENCOUNTER → 2020-06-26 | Outpatient (CLI) | payer BC ==
[2020-06-26 18:40] LABS: HGB 16.2 g/dL (12.0-15.0); MCH 32.9 pg (27.0-32.0); MCHC 33.8 g/dL (32.0-37.0); MCV 97.4 fL (80.0-97.0); Mean Platelet Volume 11.3 fL (9.5-12.2); Platelet Count 201 X 10*3/uL (140-440); RBC 4.93 X 10*6/uL (4.10-5.20); RDW 13.7 % (11.5-14.5); WBC 7.26 X 10*3/uL (4.50-10.00)
[2020-06-27 01:17] LABS: African American GFR (CKD) 94.2 (60.0-200.0); Albumin 5.2 g/dL (3.80-4.90); Albumin/Globulin Ratio 2.08 (1.60-3.17); Anion Gap 10.6 mmol/L (4.00-12.00); BUN/Creat Ratio 18.75 Ratio (12.00-20.00); Calcium 10.2 mg/dL (8.7-10.3); Carbon Dioxide 25.4 mmol/L (21.6-31.8); Chol/HDL Ratio 3.06; Globulin 2.5 g/dL (1.6-3.3); LDL Cholesterol,Calculated 109.4 mg/dL (0.0-131.0); Non-African American GFR(CKD) 81.3 (60.0-200.0); Total Protein 7.7 g/dL (6.2-8.2); VLDL Calculation 38.6 mg/dL (5.00-40.00)
== END | disposition home or self-care (01) ==
LOC: LABWHC1 13:09
PROVIDERS: ATTEND Internal Medicine
DX: E78.5 Hyperlipidemia, unspecified (principal); E03.9 Hypothyroidism, unspecified; I10 Essential (primary) hypertension
CPT/HCPCS: 36415; 80053; 80061; 84443; 85027

== ENCOUNTER → 2020-07-19 | Outpatient (CLI) | payer BC ==
[2020-07-19 09:51] VITALS: BP 151/89; PULSE 51; RESP 18; TEMP 97.9
--- NOTE | 2020-07-19 10:14 | P.PN ---
Subjective Progress Note Date: 07/19/20 This is a follow-up visit for this 59 years old female with a chronic abdominal wall pain, pain controlled with the interventional pain management by doing bilateral rectus sheath block, recently we did bilateral rectus she is block patient reported that she get excellent pain relief, he had 0 to minimal pain, she continued to use Lyrica 75 mg 3 times a day which helped for her abdominal pain and also for fibromyalgia, she denies any motor or sensory deficits Objective - Vital Signs Vital signs: Vital Signs Temp 97.9 F 07/19/20 09:49 Pulse 51 L 07/19/20 09:49 Resp 18 07/19/20 09:49 BP 151/89 07/19/20 09:49 Pulse Ox 97 07/19/20 09:49 - Exam Physical Examinations : -Constitutiona : Cooperative , not in acute distress . -HEENT : nech : supple , no Lymphadenopathy , normal thyroid size . : eyes : no ptosis , no icterus, no photophobia . - neurologic : Cranial nerve II to XII intact , no focal neurological deffecit . -psychatric : alert , oriented X 3 , appropriate affect , intact judgment and insight . -Lymphatic : no Lymphadenopathy . - Abdomen : No organomegaly. - musculoskeltal : Lumber spine moter stegnth lower extremities ,thigh and legs 5/5 Right side , 5/5 Left side Assessment and Plan Plan: Assessment and plan=1-chronic abdominal pain. pain improved after bilateral rectus sheath block, she will follow up when necessary Time with Patient: Less than 30
== END ==
LOC: PNWHC3 09:39
PROVIDERS: ATTEND Specialist
DX: R10.9 Unspecified abdominal pain (principal); G89.29 Other chronic pain; Z88.2 Allergy status to sulfonamides; Z91.048 Other nonmedicinal substance allergy status; Z87.891 Personal history of nicotine dependence
CPT/HCPCS: 99211

== ENCOUNTER → 2020-10-02 | Outpatient (CLI) | payer BC ==
--- NOTE | 2020-10-03 22:02 | CTL ---
EXAMINATION TYPE: CT Low Dose Lung DATE OF EXAM ORDERED: 10/02/2020 HISTORY: Personal history nicotine dependence. Lung cancer screening CT DLP: 62.[address] CTDI: 1.8 mGy Automated exposure control for dose reduction was used. SCREENING VISIT: Initial COMPARISON: None TECHNIQUE: Low dose computed tomography scan was performed through the chest at 1 mm thick sections a nd reconstructed images in the coronal plane at [address] DIAGNOSTIC QUALITY: Satisfactory FINDINGS: LUNG NODULES: None. LUNGS: COPD: Severity: None Fibrosis: Severity: None Lymph nodes: 1.0 cm lymph node in the pretracheal space anterior to the farideh. Other findings: None RIGHT PLEURAL SPACE: Effusion: None Calcification: None Thickening: None Pneumothorax: None LEFT PLEURAL SPACE: Effusion: None Calcification: None Thickening: None Pneumothorax: None HEART: Heart Size: Normal Coronary calcification: Mild Pericardial effusion: None OTHER FINDINGS: Upper abdomen: Normal Bony thorax: Normal Supraclavicular region: Normal Other: Ascending thoracic aorta at the level the main pulmonary artery measures 3.5 cm. The main pul monary artery at the bifurcation measures 2.2 cm. IMPRESSION: 1. No suspicious changes to suggest neoplasm 2. 1.0 cm lymph node in the pretracheal space. Short-term follow-up in 6 months is recommended. FOLLOW UP CT CHEST RECOMMENDATION: CT with contrast chest [address] LUNG RAD: 3
== END | disposition home or self-care (01) ==
LOC: RADCTMAIN 17:13
PROVIDERS: ATTEND Internal Medicine Hematology & Oncology
DX: Z09 Encounter for follow-up examination after completed treatment for conditions other than malignant neoplasm (principal); Z87.891 Personal history of nicotine dependence
CPT/HCPCS: 71271

== ENCOUNTER 2020-11-30 09:59 | Day surgery (SDC) | payer BC ==
[2020-11-28 16:16] VITALS: BMI 245.3
[2020-11-30 10:15] VITALS: TEMP 97.8
[2020-11-30] MEDS ORDERED: LACTATED RINGERS 1,000 ML IV ONE (10:15)
[2020-11-30] MEDS ORDERED: ROPIVACAINE 5MG/ML 20ML VIAL ONE (10:40)
[2020-11-30] MEDS ORDERED: TRIAMCINOLONE ACETONIDE 40 MG/ML 1 ML VIAL ONE (10:40)
[2020-11-30] MEDS ORDERED: MIDAZOLAM 2 MG/2 ML VIAL ONE (10:40)
[2020-11-30] MEDS ORDERED: fentaNYL (PF) 50 MCG/ML 2 ML AMP ONE (10:40)
--- NOTE | 2020-11-30 11:07 | P.PCN ---
Date of Procedure: 11/30/20 Surgeon: Milena Anand Pathology: none sent Condition: stable Disposition: PACU Description of Procedure: Procedure= bilateral rectus sheath block under ultrasound guidance. Preoperative diagnosis= 1-chronic upper abdominal wall pain. 2- anterior rectus sheath syndrome. Postoperative diagnosis= same as preoperative diagnosis Complication = none Condition= stable Anesthesia= moderate sedation with intravenous Versed 1 mg , and fentanyl 50 micrograms and local infiltration with lidocaine 1% 4 mL Indication for the procedure= patient complaining of chronic abdominal wall pain. Description of the procedure= procedure risk and benefits discussed with the patient, including but not limited, risk of infection and bleeding, and ALLERGIC reaction to the medication and not complete pain relief and patient agreed with the preceding patient taken to the operating room, placed in supine position or standard monitors applied to the patient then skin was prepped with chlorhexidine , and under sterile technique I started first with the right side. A 22-gauge 3-1/2 inch Quincke spinal needle was advanced under ultrasound guidance to the posterior rectus sheath layer and then I injected 1 mL of the solution which showed intramuscular injection I then further advanced the needle by 1 mm and with further injection of the solution the rectus muscle started to peel off the posterior rectus sheath I then injected 10 MLS of a solution made up of 9.5 MLS Ropivacaine 0.5% +20 mg of Kenalog. The left side was done in the same manner . A total of 40 mg of Kenalog and 20 MLS of Ropivacaine 0.5% were injected. During injection color-flow Doppler was used to avoid any vascular damage. The peritoneum was clearly identified and avoided before injecting the treating solution on the posterior rectus sheath. the patient tolerated the procedure well without any complications. Patient was obtained taken to the recovery room , discharged home after discharge criteria were met
[2020-11-30] MEDS ORDERED: IV FLUID CONTINUATION 600 ML IV ONE (11:12)
[2020-11-30 11:15] VITALS: RESP 16
[2020-11-30 11:28] VITALS: BP 151/78; PULSE 52
== END 2020-11-30 11:42 | disposition home or self-care (01) ==
LOC: ORPAIN 09:59
PROVIDERS: ATTEND Anesthesiology
DX: R10.10 Upper abdominal pain, unspecified (principal)
CPT/HCPCS: 64488; J2250; J3301; J3010; J2795; 20550; 99152

== ENCOUNTER → 2021-01-03 | Outpatient (CLI) | payer BC ==
[2021-01-03 09:32] VITALS: BP 133/90; PULSE 64; RESP 18; TEMP 97.4
--- NOTE | 2021-01-03 09:59 | P.PN ---
Subjective Progress Note Date: 01/03/21 This is a 60-year-old female presented to clinic today for a follow-up appointment after a repeat cutaneous nerve block on 11/30/2020. He has a history of cutaneous nerve entrapment. Since her procedure she's had greater than 90% pain relief. At her worst his pain is 2 out of 10 on a 0-10 scale. Pain is increased with activities. Pain is decreased with lidocaine patches. Normally she has repeat injections every 3 to more 4 months as needed. She will follow up with the office when she feels this time for another injection. Had any bowel or bladder dysfunction, saddle anesthesia, any other red flag symptoms. Objective - Vital Signs Vital signs: Vital Signs Temp 97.4 F L 01/03/21 09:28 Pulse 64 01/03/21 09:28 Resp 18 01/03/21 09:28 BP 133/90 01/03/21 09:28 Pulse Ox 97 01/03/21 09:28 - Exam Physical Examinations : -Constitutiona : Cooperative , not in acute distress . -HEENT : nech : supple , no Lymphadenopathy , normal th yroid size . : eyes : no ptosis , no icterus, no photophobia . - neurologic : Cranial nerve II to XII intact , no focal neurological deffecit . -psychatric : alert , oriented X 3 , appropriate affect , intact judgment and insight . -Lymphatic : no Lymphadenopathy . - musculoskeltal : Cervical Spine motor stregnth in the deltoid and biceps, normal right side , normal Left side motor stregnth biceps and the wrist extensors normal right side ,normal left side . motor stregnth in the triceps muscle . normal Right side , normal Left side Lumber spine moter stegnth lower extremities ,thigh and legs 5/5 Right side , 5/5 Left side deep tendon reflexes : normal Knee Jerk , normal ankle Jerk Abdominal wall Minimal pain to palpation in all 4 quadrants Assessment and Plan Assessment: Assessment and plan Assessment: Anterior cutaneous nerve entrapment Plan: Repeat anterior cutaneous nerve block as needed Dr. Baxter is available by phone for consultation during his visit. - PQRS measures = - Patient's medications are documented in the chart. -Tobacco use is positive and counseling.Given. -Patient's has received pneumococcal vaccine. -Advanced care planning discussed, patient not eligible. -Opiate contract not signed. -Pain positive and follow-up visit/procedure is scheduled. -Patient's blood pressure measured 133/90 , and documented in the record ,and patient will follow up with the primary care. -Patient was not identified as an unhealthy alcohol user Time with Patient: Less than 30
== END | disposition home or self-care (01) ==
LOC: PNWHC3 09:21
PROVIDERS: ATTEND Student in an Organized Health Care Education/Training Program
DX: G58.8 Other specified mononeuropathies (principal)
CPT/HCPCS: 99211

== ENCOUNTER → 2021-03-13 | Outpatient (CLI) | payer OTHER ==
--- NOTE | 2021-03-15 10:00 | MM ---
Reason for exam: screening (asymptomatic). Last mammogram was performed 3 years and 3 months ago. History: Patient is postmenopausal and history of other cancer. Family history of breast cancer in mother at age 40. Physical Findings: A clinical breast exam by your physician is recommended on an annual basis and results should be correlated with mammographic findings. MG 3D Screening Mammo W/Cad Bilateral CC and MLO view(s) were taken. XCCL view(s) were taken of the left breast. Prior study comparison: December 03, 2017, mammogram, performed at [facility]. April 27, 2014, mammogram, performed at [facility]. The breast tissue is heterogeneously dense. This may lower the sensitivity of mammography. There is no discrete abnormality. ASSESSMENT: Incomplete: need additional imaging evaluation, BI-RAD 0 RECOMMENDATION: Ultrasound of the left breast. (palpable by patient) [facility] will attempt to contact patient to return for ultrasound.
== END | disposition home or self-care (01) ==
LOC: RADMAMWWP 15:28
PROVIDERS: ATTEND Internal Medicine Hematology & Oncology
DX: Z12.31 Encounter for screening mammogram for malignant neoplasm of breast (principal); Z80.3 Family history of malignant neoplasm of breast; Z78.0 Asymptomatic menopausal state
CPT/HCPCS: 77063; 77067

== ENCOUNTER → 2021-03-26 | Outpatient (CLI) | payer OTHER ==
--- NOTE | 2021-03-26 09:27 | USB ---
Reason for exam: additional evaluation requested from abnormal screening. History: Patient is postmenopausal and history of other cancer. Family history of breast cancer in mother at age 40. Physical Findings: Nurse did not find any significant physical abnormalities on exam. US Breast Workup Limited LT Left limited breast ultrasound including focal area of concern, retroareolar and axilla demonstrates no cystic or solid lesion seen. Scanned 12-3 o'clock. Dense tissue is seen at the patient palpable site. These results were verbally communicated with the patient and result sheet given to the patient on 03/26/21. ASSESSMENT: Benign, BI-RAD 2 RECOMMENDATION: Return to routine screening mammogram schedule for both breasts. Manage on a clinical basis with regard to any suspicious palpable area. Rescan of any enlonging area.
== END | disposition home or self-care (01) ==
LOC: RADUSWWP 08:35
PROVIDERS: ATTEND Internal Medicine Hematology & Oncology
DX: R92.8 Other abnormal and inconclusive findings on diagnostic imaging of breast (principal)

== ENCOUNTER 2021-03-27 06:34 | Day surgery (SDC) | payer BC, OTHER ==
[2021-03-22 14:23] VITALS: BMI 24.7
[2021-03-27 07:08] VITALS: TEMP 97.2
[2021-03-27] MEDS ORDERED: ROPIVACAINE 5MG/ML 20ML VIAL ONE (07:59)
[2021-03-27] MEDS ORDERED: MIDAZOLAM 2 MG/2 ML VIAL ONE ×2 (07:59)
[2021-03-27] MEDS ORDERED: SODIUM CHLORIDE 0.9% (PF) 10 ML VIAL ONE (07:59)
[2021-03-27] MEDS ORDERED: methylPREDNISolone ACETATE 40 MG/ML 1 ML VIAL ONE (07:59)
[2021-03-27] MEDS ORDERED: fentaNYL (PF) 50 MCG/ML 2 ML AMP ONE (07:59)
[2021-03-27] MEDS ORDERED: IV FLUID CONTINUATION 1,000 ML IV ONE (08:18)
[2021-03-27 08:21] VITALS: RESP 18
[2021-03-27 08:33] VITALS: BP 118/79; PULSE 55
--- NOTE | 2021-03-27 09:01 | P.PCN ---
Date of Procedure: 03/27/21 Description of Procedure: PREPROCEDURE DIAGNOSIS: Nonspecific upper anterior abdominal wall pain/ rectus sheath muscle myofascial pain syndrome POSTPROCEDURE DIAGNOSIS: Nonspecific upper anterior abdominal wall pain/rectus sheath muscle myofascial pain syndrome PROCEDURE: Bilateral rectus sheath block under ultrasound guidance ANESTHESIA: Local with 1% lidocaine; IV sedation: Versed 2 mg, and fentanyl. EBL: none COMPLICATIONS: none Specimens removed: None Ultrasound image: Saved to patient electronic medical records. Procedure indication : The patient has been suffering from nonspecific upper abdominal wall pain after cholecystectomy. Patient had previous multiple rectus sheath blocks with good pain relief. Patient also had similar procedures done at [facility], and [facility]. She hsd extensive abdominal workup, multiple surgical, gastroenterology consultation workups done. She tried multiple conservative therapies. So patient scheduled for repeat rectus sheath block. PROCEDURE DESCRIPTION: The patient was seen and identified in the preoperative area. Risks, benefits, complications, and alternatives were discussed with the patient. The patient agreed to proceed with the procedure and signed the consent. IV was started, and vital signs were stable. Patient was taken to the OR and time out was completed. The patient was placed in the supine position . Left side abdominal wall cleaned with ChloraPrep 1. Was draped in the usual sterile fashion. Critical pause was taken. Vital signs were closely monitored during the procedure.Sterile technique was observed throughout the procedure Using ultrasound linear transducer placed above the umbilicus close to her trigger points area. Rectus muscle, anterior sheath, and posterior sheath identified. A 21 gauze Stimuplex 100 mm needle used for the procedure. The needle is inserted in-plane in a lateral to medial orientation advanced under needle tip visualized all the time entered close to the posterior rectus sheath. 1 mL of preservative free normal saline used to conform the needle position. After gentle aspiration, negative for blood, air, body fluids . During injection color flow Doppler was used to avoid any vascular injection. A total of 20 mL of block solution injected with 5mL of increments with intermittent negative aspiration local anesthetic was injected to confirm the needle tip position. Needle tip never passed the posterior rectus sheath. The block solution containing 10 mL of 0.5% ropivacaine preservative free , and 10 ML of preservative-free normal saline with 40 MG of Kenalog. Needle removed intact. Entire procedure repeated on the left side of the rectus sheath area. Skin cleaned, and Band-Aid applied. Patient tolerated the procedure very well. COMPLICATIONS: None. DISPOSITION / PLANS: The patient was placed in a supine position and transferred to the recovery area in a stable condition for observation and was discharged from the recovery room after meeting discharge criteria. Home discharge instructions given to the patient by the staff. The patient was reexamined prior to discharge. The patient will schedule for follow-up visit with the pain clinic in 4 weeks duration.
== END 2021-03-27 08:48 | disposition home or self-care (01) ==
LOC: ORPAIN 06:34
DX: G58.9 Mononeuropathy, unspecified (principal); G62.9 Polyneuropathy, unspecified; M79.18 Myalgia, other site; K86.1 Other chronic pancreatitis; D47.2 Monoclonal gammopathy; Z90.49 Acquired absence of other specified parts of digestive tract; Z78.0 Asymptomatic menopausal state; Z98.890 Other specified postprocedural states; Z88.2 Allergy status to sulfonamides; Z91.09 Other allergy status, other than to drugs and biological substances
CPT/HCPCS: 64488; J2250; J1030; J3010; J2795; 20550; 99152

== ENCOUNTER → 2021-04-23 | Outpatient (CLI) | payer OTHER ==
--- NOTE | 2021-04-23 10:34 | P.PN ---
Subjective Progress Note Date: 04/23/21 Principal diagnosis: A 60 yr old female with a history of severe and chronic nerve pain status post cholecystectomy presents today for evaluation status post bilateral rectus sheath procedure under ultrasound. Patient admits to 80% pain relief following procedure. Pain level is 2 out of 10 in intensity, sharp, burning below the ribs bilaterally without radiation. Pain is provoked by bending, stretching and overhead reaching. Pain is alleviated with lidocaine patches, ice, laying supine. Interventional pain procedures completed include bilateral rectus sheath under ultrasound Patient is currently on lidocaine patches Patient denies any side effects of the medication(s), denies excessive drowsiness or sleepiness, denies suicidal ideation and reports that the current pain medication is helping to control the pain and improve activities of daily living. Patient denies any motor or sensory deficits. Patient denies any fever or night sweats, denies any change in the bowel movements or urination. Physical Examination: -Constitutional: Cooperative. Not in acute distress . -HEENT: Neck is supple. No lymphadenopathy. No thyromegaly. Normal thyroid size. Eyes: No ptosis , no icterus, no photophobia. ENT: No auditory deficits. Normal oropharynx. No Thrush. - Respiratory: Chest clear to auscultations bilaterally. No wheezing. No rhonchi. - Cardiovascular: Regular rate and rhythm. S1 / S2 , no S3 , no S4. - Gastrointestinal: Abdomen soft no tenderness. Bowel sounds positive in all four quadrants. No organomegaly. - Genitourinary: Deferred. - Neurologic: Cranial nerve II to XII intact. No focal neurological deficits. - Psychatric: Alert & oriented x 3. Matching mood & appropriate affect. Judgment and insight intact. - Lymphatic: No Lymphadenopathy. - Musculoskeletal: Cervical spine: Muscle bulk/ tone/ strength in the bilateral upper extremities normal. Facet loading test cervical area positive. Thoracic spine: Minimal tenderness to palpation over the C6 to 8 intercostal spaces bilaterally Lumbar spine: Motor bulk/ tone/ strength lower extremities , thigh and legs : 5/5 Deep tendon reflexes : Normal Knee Jerk. Normal Ankle Jerk . 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 I have spent 31 minutes on patient care today. Dr Baxter was available by phone for the evaluation of this patient. The time was used to review the medical records including relevant urine studies and Prescription history (MAPs), review of the available imaging, evaluation and examination of the patient, coordination of care with the medical staff and if applicable referring physicians, as well as creation of the medical record PQRS Measure Charge Sheet PQRS Narrative: Smoking Status Former smoker Pain Intensity [Abdomen] 3 Hx Alcohol Use (MH) Yes Home Medications: Ambulatory Orders Atorvastatin Calcium [Lipitor] 20 mg PO HS 05/06/14 Black Cohosh Root [Black Cohosh] 540 mg PO DAILY 05/06/14 Cholecalciferol [Vitamin D3] 5,000 unit PO HS 05/06/14 Escitalopram [Lexapro] 20 mg PO HS 05/06/14 Pregabalin [Lyrica] 75 mg PO TID 05/06/14 Bisoprolol Fumarate [Zebeta] 10 mg PO DAILY 09/24/17 Levothyroxine Sodium [Levoxyl] 50 mcg PO SUTUWETHSA 09/24/17 Lidocaine 5% Patch [Lidoderm] 1 patch TOPICAL DAILY PRN 09/24/17 lisinopriL [Zestril] 10 mg PO DAILY 09/24/17 Esomeprazole Magnesium [NexIUM] 20 mg PO DAILY 10/06/18 Glucosam/Vijay-Msm1/C/Brent/Bosw [Pzsdilivodb-Ykymhhbxucf-UIE Tb] 1 each PO DAILY 07/26/19 Magnesium W/ Potassium 1 tab PO BID 07/26/19
[2021-04-23 12:01] VITALS: BP 165/106; PULSE 61; RESP 18; TEMP 98.2
== END ==
LOC: PNWHC3 10:01
PROVIDERS: ATTEND Physician Assistant Medical
DX: G62.9 Polyneuropathy, unspecified (principal); G58.9 Mononeuropathy, unspecified
CPT/HCPCS: 99211

== ENCOUNTER → 2021-06-11 | Outpatient (CLI) | payer OTHER ==
--- NOTE | 2021-06-11 12:04 | CT ---
EXAMINATION TYPE: CT chest w con DATE OF EXAM: 06/11/2021 COMPARISON: CT dated 10/02/2020 HISTORY: lung nodule CT DLP: 455 mGycm Automated exposure control for dose reduction was used. TECHNIQUE: CT scan of the chest is performed with IV Contrast, patient injected with 100ML mL of Isovue 300. FINDINGS: LUNGS: Stable 3 mm right middle lobe nodule and 3 mm left lung base pleural-based nodule. Unremarkabl e lungs otherwise. Patent trachea and main bronchi. No pleural effusion. MEDIASTINUM: There are no greater than 1 cm hilar or mediastinal lymph nodes. No cardiomegaly. Reardon ry and arterial atherosclerotic calcification. Aberrant right subclavian artery indenting the posteri or aspect of the esophagus. No pericardial effusion is seen. OTHER: No aggressive bone lesion. Unremarkable upper abdomen. IMPRESSION: Stable few pulmonary nodules as described above. No new or progressive lung lesion. Incidental findin gs as described above.
== END | disposition home or self-care (01) ==
LOC: RADCTMAIN 10:24
PROVIDERS: ATTEND Internal Medicine Hematology & Oncology
DX: R91.1 Solitary pulmonary nodule (principal)
CPT/HCPCS: 71260; Q9967

== ENCOUNTER 2021-08-02 09:30 | Day surgery (SDC) | payer OTHER ==
[~2021-08-02 09:30] MED LIST changes: +LIDOCAINE 1% (10MG/ML) FOR IV START INTRADERMA PRN
[2021-08-02 10:14] VITALS: TEMP 97.2
[2021-08-02] MEDS ORDERED: ROPIVACAINE 5MG/ML 20ML VIAL ONE (10:39)
[2021-08-02] MEDS ORDERED: fentaNYL (PF) 50 MCG/ML 2 ML AMP ONE (10:39)
[2021-08-02] MEDS ORDERED: methylPREDNISolone ACETATE 80 MG/ML 1 ML VIAL ONE (10:39)
[2021-08-02] MEDS ORDERED: MIDAZOLAM 2 MG/2 ML VIAL ONE (10:39)
--- NOTE | 2021-08-02 11:00 | P.PCN ---
Date of Procedure: 08/02/21 Procedure(s) Performed: Procedure= bilateral rectus sheath block under ultrasound guidance. Preoperative diagnosis= 1-chronic upper abdominal pain. 2- rectus sheath neuralgia.(Bilateral ) Postoperative diagnosis= same as preoperative diagnosis Complication = none Condition= stable Anesthesia= moderate sedation with intravenous Versed 2 mg , and fentanyl 100 micrograms and local infiltration with lidocaine 1% 4 mL Indication for the procedure= patient complaining of chronic abdominal pain. Description of the procedure= procedure risk and benefits discussed with the patient, including but not limited, risk of infection and bleeding, and ALLERGIC reaction to the medication and not complete pain relief and patient agreed with the preceding patient taken to the operating room, placed in supine position or standard monitors applied to the patient then after induction of anesthesia back prepped with chlorhexidine 3 times , and under sterile technique first and in the right side. Rectus sheath block by advancing the 21-gauge Pujunk needle under ultrasound guidance advanced towards the posterior border of the rectus muscle on the right side, which is the location of the rectus sheath, then after negative aspiration for heme total of 10 ML of ropivacaine 0.5% mixed with 40 mg of Depo-Medrol injected at the posterior border of the right side the rectus muscle (location of the rectus sheath ), then the same procedure done for the left side and I did the left side rectus sheath the block, the patient tolerated the procedure well without any convocation. Patient taken to the recovery room , discharged home after discharge criteria met
[2021-08-02] MEDS ORDERED: IV FLUID CONTINUATION 1,000 ML IV ONE (11:08)
[2021-08-02 11:17] VITALS: PULSE 57
[2021-08-02 11:30] VITALS: BP 123/75; RESP 16
== END 2021-08-02 11:55 | disposition home or self-care (01) ==
LOC: ORPAIN 09:30
PROVIDERS: ATTEND Specialist
DX: R10.10 Upper abdominal pain, unspecified (principal); G58.8 Other specified mononeuropathies
CPT/HCPCS: 64488; J2250; J1040; J3010; J2795; 20550; 99152

== ENCOUNTER → 2021-08-29 | Outpatient (CLI) | payer OTHER ==
[2021-08-29 14:39] VITALS: BP 185/97; PULSE 68; RESP 18
--- NOTE | 2021-08-29 14:46 | P.PAINPG ---
PQRS Measure Charge Sheet Comment: A 60 yr old female with a history of severe and chronic low back pain secondary to lumbar degenerative disc diseases and lumbar spondylosis with facet arthropathy presents today for the rectus sheath nerve blocks for rectus sheath neuralgia. She states she experienced 80% pain relief status post procedure x 4 weeks. Pain level is currently at 2/10 in intensity, localized in the BLUQ abdominal pain, constant stabbing shooting towards . Pain is provoked by bending, lifting and stretching. Pain is alleviated with ice, lidoderm patches, home based stretches when tolerated, and rest. Interventional pain procedures completed include BL Rectus Sheath NB x 2 (Since Mar 2021) Patient is currently on Lidoderm patches Patient denies any side effects of the medication(s), denies excessive drowsiness or sleepiness, denies suicidal ideation and reports that the current pain medication is helping to control the pain and improve activities of daily living. Patient denies any motor or sensory deficits. Patient denies any fever or night sweats, denies any change in the bowel movements or urination. Physical Examination: -Constitutional: Cooperative. Not in acute distress . +BLUQ TTP - Neurologic: Cranial nerve II to XII intact. No focal neurological deficits. - Psychatric: Alert & oriented x 3. Matching mood & appropriate affect. Judgment and insight intact. - Musculoskeletal: Cervical spine: Muscle bulk/ tone/ strength in the bilateral upper extremities normal Vertebral body tenderness to palpation over Spurling test positive Distraction test positive Facet loading test positive Thoracic spine Muscle bulk / tone/ strength in the bilateral paraspinal muscles normal Vertebral body tender to palpation over Facet loading test positive Lumbar spine: Motor bulk/ tone/ strength lower extremities , thigh and legs : 5/5 Deep tendon reflexes : Normal Knee Jerk. Normal Ankle Jerk . Vertebral body tenderness to palpation over Lumbar Facet Loading Test positive Straight Leg Raise: positive at 30 degrees right side/ left side Gaenslen's Test positive Sacral spine : Severe tenderness over the Sacroiliac joint: right side / left side Range of motion: Flexion of the lumbar spine <60 degrees Range of motion: Extension of the lumbar spine <20 degrees Gaenslen's Test positive Randall's Test positive Cathy test: positive right side / left side Thigh Thrust Test Sacral Thrust Test Assessment and plan: Chronic low back pain secondary to lumbar degenerative disc disease , lumbar spondylosis with facet arthropathy without myelopathy Recommendation of BL Rectus Sheath nerve block #2 Risks, benefits of procedure discussed and pt verbalized understanding. Denies anticoagulant use or medical history of diabetes. All patient questions answered MAPS reviewed and it was appropriate. Prescription refill for Diclofenac gel 1 tube w 1 refill. I have spent less than 30 minutes on patient care today. Dr Baxter was available by phone for the evaluation of this patient. The time was used to review the medical records including relevant urine studies and Prescription history (MAPs), review of the available imaging, evaluation and examination of the patient, coordination of care with the medical staff and if applicable referring physicians, as well as creation of the medical record - Pain Location Bilateral Upper Abdomen Non-Pharmacological Interventions: Home Exercise, Ice, Inactivity, Position/Reposition Pharmacological Interventions: Topical Medication PQRS Narrative: Smoking Status Former smoker Hx Alcohol Use (MH) Yes Home Medications: Ambulatory Orders Atorvastatin Calcium [Lipitor] 20 mg PO HS 05/06/14 Black Cohosh Root [Black Cohosh] 540 mg PO DAILY 05/06/14 Cholecalciferol [Vitamin D3] 5,000 unit PO HS 05/06/14 Escitalopram [Lexapro] 20 mg PO HS 05/06/14 Pregabalin [Lyrica] 75 mg PO TID 05/06/14 Bisoprolol Fumarate [Zebeta] 10 mg PO DAILY 09/24/17 Levothyroxine Sodium [Levoxyl] 50 mcg PO SUTUWETHSA 09/24/17 Lidocaine 5% Patch [Lidoderm] 1 patch TOPICAL DAILY PRN 09/24/17 lisinopriL [Zestril] 10 mg PO DAILY 09/24/17 Esomeprazole Magnesium [NexIUM] 20 mg PO DAILY 10/06/18 Glucosam/Vijay-Msm1/C/Brent/Bosw [Yyqexbqtfxi-Fwejtazinth-TJO Tb] 1 each PO DAILY 07/26/19 Magnesium W/ Potassium 1 tab PO BID 07/26/19 Diclofenac Sodium Gel [Voltaren Gel] 100 gm TOPICAL BID 30 Days #1 kit 08/29/21 Controlled Substance Measures - Controlled Substance Measures Is patient prescribed a controlled substance at discharge?: No
== END | disposition home or self-care (01) ==
LOC: PNWHC3 13:55
PROVIDERS: ATTEND Specialist
DX: M47.896 Other spondylosis, lumbar region (principal); M51.36 Other intervertebral disc degeneration, lumbar region
CPT/HCPCS: 99211

== ENCOUNTER 2021-11-08 09:02 | Day surgery (SDC) | payer OTHER ==
[2021-11-08 09:49] VITALS: TEMP 97
[2021-11-08] MEDS ORDERED: LACTATED RINGERS 1,000 ML IV ONE (09:54)
[2021-11-08] MEDS ORDERED: ROPIVACAINE 5MG/ML 20ML VIAL ONE (10:20)
[2021-11-08] MEDS ORDERED: MIDAZOLAM 2 MG/2 ML VIAL ONE (10:20)
[2021-11-08] MEDS ORDERED: fentaNYL (PF) 50 MCG/ML 2 ML AMP ONE (10:20)
[2021-11-08] MEDS ORDERED: methylPREDNISolone ACETATE 80 MG/ML 1 ML VIAL ONE (10:20)
--- NOTE | 2021-11-08 10:36 | P.PCN ---
Date of Procedure: 11/08/21 Procedure(s) Performed: Procedure= bilateral rectus sheath block under ultrasound guidance. Preoperative diagnosis= 1-chronic upper abdominal pain. 2- rectus sheath neuralgia.(Bilateral ) Postoperative diagnosis= same as preoperative diagnosis Complication = none Condition= stable Anesthesia= moderate sedation with intravenous Versed 2 mg , and fentanyl 100 micrograms and local infiltration with lidocaine 1% 4 mL Sedation the start time 1021. Sedation end time 1034 Indication for the procedure= patient complaining of chronic abdominal pain. Description of the procedure= procedure risk and benefits discussed with the patient, including but not limited, risk of infection and bleeding, and ALLERGIC reaction to the medication and not complete pain relief and patient agreed with the preceding patient taken to the operating room, placed in supine position or standard monitors applied to the patient then after induction of anesthesia back prepped with chlorhexidine 3 times , and under sterile technique first and in the right side. Rectus sheath block by advancing the 21-gauge Pujunk needle under ultrasound guidance advanced towards the posterior border of the rectus muscle on the right side, which is the location of the rectus sheath, then after negative aspiration for heme total of 10 ML of ropivacaine 0.5% mixed with 40 mg of Depo-Medrol injected at the posterior border of the right side the rectus muscle (location of the rectus sheath ), then the same procedure done for the left side and I did the left side rectus sheath the block, the patient tolerated the procedure well without any convocation. Patient taken to the recovery room , discharged home after discharge criteria met
[2021-11-08] MEDS ORDERED: IV FLUID CONTINUATION 1,000 ML IV ONE (10:40)
[2021-11-08 10:49] VITALS: RESP 16
[2021-11-08 10:56] VITALS: BP 142/78; PULSE 61
== END 2021-11-08 11:12 | disposition home or self-care (01) ==
LOC: ORPAIN 09:02
PROVIDERS: ATTEND Anesthesiology
DX: G58.8 Other specified mononeuropathies (principal); R10.10 Upper abdominal pain, unspecified
CPT/HCPCS: 64488; J2250; J1040; J3010; J2795; 20550; 99152

== ENCOUNTER → 2021-11-29 | Outpatient (CLI) | payer OTHER ==
[2021-11-29 11:43] VITALS: BP 133/82; PULSE 55; RESP 18; TEMP 99.2
--- NOTE | 2021-11-29 14:51 | P.PAINPG ---
Objective - Vital Signs Vital signs: Intake & Output 11/28/21 11/29/21 11/29/21 18:59 06:59 18:59 Weight 68.039 kg PQRS Measure Charge Sheet Comment: A 60 yr old female with a history of severe and chronic low back pain secondary to lumbar degenerative disc diseases and lumbar spondylosis with facet arthropathy without myelopathy presents today for evaluation s/p BL Rectus Sheath Block. Pt states she experienced 80% pain relief x 3 wks s/p procedure. Pain level is currently at 2/10 in intensity, constant, localized in BL upper abdomen, stabbing in character without radiation. Pain is provoked by bending/stretching. Pain is alleviated with ice, Lidoderm patches, laying supine, repositioning and rest. Interventional pain procedures completed include BL Rectus Sheath Block Patient is currently on DENIES Patient denies any side effects of the medication(s), denies excessive drowsiness or sleepiness, denies suicidal ideation and reports that the current pain medication is helping to control the pain and improve activities of daily living. Patient denies any motor or sensory deficits. Patient denies any fever or night sweats, denies any change in the bowel movements or urination. Physical Examination: -Constitutional: Cooperative. Not in acute distress . - Neurologic: Cranial nerve II to XII intact. No focal neurological deficits. - Psychatric: Alert & oriented x 3. Matching mood & appropriate affect. Judgment and insight intact. - Musculoskeletal: Cervical spine: Muscle bulk/ tone/ strength in the bilateral upper extremities normal Vertebral body tenderness to palpation over Spurling test positive Distraction test positive Facet loading test positive Thoracic spine Muscle bulk / tone/ strength in the bilateral paraspinal muscles normal Vertebral body tender to palpation over Facet loading test positive Lumbar spine: Motor bulk/ tone/ strength lower extremities , thigh and legs : 5/5 Deep tendon reflexes : Normal Knee Jerk. Normal Ankle Jerk . Vertebral body tenderness to palpation over Lumbar Facet Loading Test positive Straight Leg Raise: positive at 30 degrees right side/ left side Gaenslen's Test positive Sacral spine : Severe tenderness over the Sacroiliac joint: right side / left side Range of motion: Flexion of the lumbar spine <60 degrees Range of motion: Extension of the lumbar spine <20 degrees Gaenslen's Test positive Randall's Test positive Cathy test: positive right side / left side Thigh Thrust Test Sacral Thrust Test Assessment and plan: Chronic low back pain secondary to lumbar degenerative disc disease , lumbar spondylosis with facet arthropathy without myelopathy Pt exhibited sufficient and substantial pain relief w procedure. She will manage residual pain w home modifying factors. She will Call When Ready for a repeat procedure. Risks, benefits of procedure discussed and pt verbalized understanding. Denies anticoagulant use or medical history of diabetes. All patient questions answered I have spent less than 30 minutes on patient care today. Dr Baxter was available by phone for the evaluation of this patient. The time was used to review the medical records including relevant urine studies and Prescription history (MAPs), review of the available imaging, evaluation and examination of the patient, coordination of care with the medical staff and if applicable referring physicians, as well as creation of the medical record PQRS Narrative: Smoking Status Former smoker Pain Intensity [Abdomen] 2 Hx Alcohol Use (MH) Yes Home Medications: Ambulatory Orders Atorvastatin Calcium [Lipitor] 20 mg PO DAILY 05/06/14 Black Cohosh Root [Black Cohosh] 540 mg PO DAILY 05/06/14 Cholecalciferol [Vitamin D3] 5,000 unit PO HS 05/06/14 Escitalopram [Lexapro] 20 mg PO HS 05/06/14 Pregabalin [Lyrica] 75 mg PO TID 05/06/14 Bisoprolol Fumarate [Zebeta] 10 mg PO DAILY 09/24/17 Levothyroxine Sodium [Levoxyl] 50 mcg PO SUTUWETHSA 09/24/17 Lidocaine 5% Patch [Lidoderm] 1 patch TOPICAL DAILY PRN 09/24/17 lisinopriL [Zestril] 10 mg PO DAILY 09/24/17 Esomeprazole Magnesium [NexIUM] 20 mg PO DAILY 10/06/18 Glucosam/Vijay-Msm1/C/Brent/Bosw [Lljjljtswmd-Scpcwsehrii-JCW Tb] 1 each PO DAILY 07/26/19 Magnesium W/ Potassium 1 tab PO BID 07/26/19 Controlled Substance Measures - Controlled Substance Measures Is patient prescribed a controlled substance at discharge?: No
== END ==
LOC: PNWHC3 10:44
PROVIDERS: ATTEND Specialist
DX: M51.36 Other intervertebral disc degeneration, lumbar region (principal); M47.816 Spondylosis without myelopathy or radiculopathy, lumbar region; G89.29 Other chronic pain; Z87.891 Personal history of nicotine dependence; F10.90 Alcohol use, unspecified, uncomplicated; Z91.048 Other nonmedicinal substance allergy status; Z88.8 Allergy status to other drugs, medicaments and biological substances
CPT/HCPCS: 99211

== ENCOUNTER → 2022-03-27 | Outpatient (CLI) | payer OTHER | END | disposition home or self-care (01) | LOC: RADBDWWP 10:00 | PROVIDERS: ATTEND Family Medicine | DX: Z53.9 Procedure and treatment not carried out, unspecified reason (principal) ==

== ENCOUNTER → 2022-03-27 | Outpatient (CLI) | payer OTHER ==
--- NOTE | 2022-03-27 09:23 | BD ---
EXAMINATION TYPE: Axial Bone Density DATE OF EXAM: 03/27/2022 COMPARISON: NONE CLINICAL HISTORY: 61 year old Female. ICD-10 CODE: N95.1 POST MENOPAUSAL Height: 63.5 Weight: 152.6 FRAX RISK QUESTIONS: Alcohol (3 or more units per day): no Family History (Parent hip fracture): yes Glucocorticoids (More than 3mos): no (Ex: prednisone, prednisolone, methylprednisolone, dexamethasone, and hydrocortisone). History of Fracture in Adulthood: no Secondary Osteoporosis: 1. Type 1 Diabetes: no 2. Hyperthyroidism: no 3. Menopause before 45: no 4. Malnutrition: no 5. Chronic liver disease: no Rheumatoid Arthritis: no Current Tobacco Use: yes RISK FACTORS HISTORY OF: Surgery to Spine/Hip(right/left)/Wrist (right/left): no Family History of Osteoporosis: yes Active: yes Diet low in dairy products/other sources of calcium: yes Postmenopausal woman: yes Lost more than 2 inches in height since high school: no MEDICATIONS: Thyroid Medications: levothyroxine How Lon years Additional History: EXAM MEASUREMENTS: Bone mineral densitometry was performed using the [employer] Imagine System. Bone mineral density as measured about the Lumbar spine is: ----- L1-L4(G/cm2): 1.016 T Score Values are as follows: ----- L1: -0.6 ----- L2: -1.6 ----- L3: -2.3 ----- L4: -1.1 ----- L1-L4: -1.4 Bone mineral density : baseline Bone mineral density about the R hip (g/cm2): 0.751 Bone mineral density about the L hip (g/cm2): 0.761 T Score values are as follows: -----R Neck: -2.1 -----L Neck: -2.0 -----R Total: -1.7 -----L Total: -1.5 Bone mineral density : baseline FRAX%s: The graph provided illustrates a 18.8% chance for a major osteoporotic fx and a 1.4% chance f or the hips probability for fx in 10 years time. IMPRESSION: Osteopenia (T Score between -2.5 and -1). There is slightly increased risk of fracture and the patient may be considered for treatment. Re-Screen 2-5 years. NOTE: T-SCORE=SD OF THE YOUNG ADULT MEAN.
--- NOTE | 2022-03-27 10:18 | MM ---
Reason for Exam: Screening (asymptomatic). Last mammogram was performed 1 year(s) and 1 month(s) ago. Patient History: Menarche at age 13. First Full-Term at age 22. Postmenopausal. Other cancer. Mother had breast cancer, age 40. Risk Values: Mary 5 year model risk: 2.7%. NCI Lifetime model risk: 13.6%. Prior Study Comparison: 04/27/2014 Screening Mammogram, [facility]. 12/03/2017 Screening Mammogram, [facility]. 03/13/2021 Bilateral Screening Mammogram, [facility]. Tissue Density: The breast tissue is heterogeneously dense. This may lower the sensitivity of mammography. Findings: Analyzed By CAD. There is no suspicious group of microcalcifications or new suspicious mass in either breast. Overall Assessment: Negative, BI-RAD 1 Management: Screening Mammogram of both breasts in 1 year. A clinical breast exam by your physician is recommended on an annual basis and results should be correlated with mammographic findings. [facility] will attempt to contact patient to return for supplemental views and ultrasound if indicated. Electronically signed and approved by: Hayes Correa DO
== END | disposition home or self-care (01) ==
LOC: RADMAMWWP 08:27
PROVIDERS: ATTEND Family Medicine
DX: Z12.31 Encounter for screening mammogram for malignant neoplasm of breast (principal); M85.89 Other specified disorders of bone density and structure, multiple sites; Z78.0 Asymptomatic menopausal state; Z80.3 Family history of malignant neoplasm of breast
CPT/HCPCS: 77067; 77080

== ENCOUNTER → 2022-05-15 | Outpatient (CLI) | payer OTHER ==
[2022-05-15 10:37] VITALS: BP 147/91; PULSE 58; RESP 18; TEMP 98.4
--- NOTE | 2022-05-15 14:39 | P.PAINPG ---
PQRS Measure Charge Sheet Comment: A 61 yr old female with a history of severe and chronic abdominal pain x 4 yrs secondary to without myelopathy presents today for abdominal pain. Pain level is provoked at 8 /10 in intensity, constant, localized in the LLQ/ RLQ abdomen, achy/ sharp in character w/o shooting pain. Pain is provoked by bending, lifting , stretching and deep breathing. Pain is alleviated with ice, injections, topicals, massage, repositioning and rest. Interventional pain procedures completed include BL Abdominus Rectus Sheath x 3 (2021) Patient is currently on Lidoderm Patient denies any side effects of the medication(s), denies excessive drowsiness or sleepiness, denies suicidal ideation and reports that the current pain medication is helping to control the pain and improve activities of daily living. Patient denies any motor or sensory deficits. Patient denies any fever or night sweats, denies any change in the bowel movements or urination. Physical Examination: -Constitutional: Cooperative. Not in acute distress . - Neurologic: Cranial nerve II to XII intact. No focal neurological deficits. - Psychatric: Alert & oriented x 3. Matching mood & appropriate affect. Judgment and insight intact. - Musculoskeletal: Cervical spine: Muscle bulk/ tone/ strength in the bilateral upper extremities normal Vertebral body tenderness to palpation over Spurling test positive Distraction test positive Facet loading test positive TTP Thoracic spine Muscle bulk / tone/ strength in the bilateral paraspinal muscles normal Vertebral body tender to palpation over Facet loading test positive TTP Lumbar spine: Motor bulk/ tone/ strength lower extremities , thigh and legs : 5/5 Deep tendon reflexes : Normal Knee Jerk. Normal Ankle Jerk . Vertebral body tenderness to palpation over Lumbar Facet Loading Test positive Straight Leg Raise: positive at 30 degrees right side/ left side Gaenslen's Test positive Sacral spine : Severe tenderness over the Sacroiliac joint: right side / left side Range of motion: Flexion of the lumbar spine <60 degrees Range of motion: Extension of the lumbar spine <20 degrees Gaenslen's Test positive right side / left side Cathy test: positive right side / left side Thigh Thrust Test positive right side / left side Sacral Thrust Test positive right side / left side Assessment and plan: Chronic abdominal pain secondary to abdominal cutaneous nerve entrapment Recommendation of BL Abdominal Rectus Sheath nerve block. May need a series of injections, up to 3 within a 6 mo period, for optimal pain relief. Risks, benefits of procedure discussed and pt verbalized understanding. Admits to anticoagulant use or medical history of diabetes. Protocol for discontinuation/ continuation of medications ana cristina procedure discussed. All questions answered. I have spent less than 30 minutes on patient care today. Dr Baxter was available by phone for the evaluation of this patient. The time was used to review the medical records including relevant urine studies and Prescription history (MAPs), review of the available imaging, evaluation and examination of the patient, coordination of care with the medical staff and if applicable referring physicians, as well as creation of the medical record PQRS Narrative: Smoking Status Former smoker Hx Alcohol Use (MH) Yes Home Medications: Ambulatory Orders Atorvastatin Calcium [Lipitor] 20 mg PO DAILY 05/06/14 Black Cohosh Root [Black Cohosh] 540 mg PO DAILY 05/06/14 Cholecalciferol [Vitamin D3] 5,000 unit PO HS 05/06/14 Escitalopram [Lexapro] 20 mg PO HS 05/06/14 Pregabalin [Lyrica] 75 mg PO TID 05/06/14 Bisoprolol Fumarate [Zebeta] 10 mg PO DAILY 09/24/17 Levothyroxine Sodium [Levoxyl] 50 mcg PO SUTUWETHSA 09/24/17 Lidocaine 5% Patch [Lidoderm] 1 patch TOPICAL DAILY PRN 09/24/17 lisinopriL [Zestril] 10 mg PO DAILY 09/24/17 Esomeprazole Magnesium [NexIUM] 20 mg PO DAILY 10/06/18 Glucosam/Vijay-Msm1/C/Brent/Bosw [Orrghqhgxxu-Gkxsdfrvsyx-OSC Tb] 1 each PO DAILY 07/26/19 Magnesium W/ Potassium 1 tab PO BID 07/26/19 Controlled Substance Measures - Controlled Substance Measures Is patient prescribed a controlled substance at discharge?: No
== END ==
LOC: PNWHC3 10:20
PROVIDERS: ATTEND Specialist
DX: G58.8 Other specified mononeuropathies (principal); G89.29 Other chronic pain; Z87.891 Personal history of nicotine dependence; Z88.2 Allergy status to sulfonamides; Z91.048 Other nonmedicinal substance allergy status; R10.30 Lower abdominal pain, unspecified
CPT/HCPCS: 99211

== ENCOUNTER 2022-06-06 08:31 | Day surgery (SDC) | payer OTHER ==
[2022-06-06 08:57] VITALS: RESP 16; TEMP 96.9
[2022-06-06] MEDS ORDERED: LACTATED RINGERS 1,000 ML IV ONE (09:06)
[2022-06-06] MEDS ORDERED: methylPREDNISolone ACETATE 80 MG/ML 1 ML VIAL ONE (09:39)
[2022-06-06] MEDS ORDERED: ROPIVACAINE 5 MG/ML 20 ML AMPULE ONE (09:39)
[2022-06-06] MEDS ORDERED: fentaNYL (PF) 50 MCG/ML 2 ML AMP ONE (09:39)
[2022-06-06] MEDS ORDERED: MIDAZOLAM 2 MG/2 ML VIAL ONE (09:39)
--- NOTE | 2022-06-06 09:58 | P.PCN ---
Date of Procedure: 06/06/22 Procedure(s) Performed: Procedure= bilateral rectus sheath block under ultrasound guidance. Preoperative diagnosis= 1-chronic upper abdominal pain. 2- rectus sheath neuralgia.(Bilateral ) Postoperative diagnosis= same as preoperative diagnosis Complication = none Condition= stable Anesthesia= moderate sedation with intravenous Versed 1 mg , and fentanyl 50 micrograms and local infiltration with lidocaine 1% 4 mL Sedation the start time 0940. Sedation end time 0954 Indication for the procedure= patient complaining of chronic abdominal pain. Description of the procedure= procedure risk and benefits discussed with the patient, including but not limited, risk of infection and bleeding, and ALLERGIC reaction to the medication and not complete pain relief and patient agreed with the preceding patient taken to the operating room, placed in supine position or standard monitors applied to the patient then after induction of anesthesia back prepped with chlorhexidine 3 times , and under sterile technique first and in the right side. Rectus sheath block by advancing the 21-gauge Pujunk needle under ultrasound guidance advanced towards the posterior border of the rectus muscle on the right side, which is the location of the rectus sheath, then after negative aspiration for heme total of 10 ML of ropivacaine 0.5% mixed with 40 mg of Depo-Medrol injected at the posterior border of the right side the rectus muscle (location of the rectus sheath ), then the same procedure done for the left side and I did the left side rectus sheath the block, the patient tolerated the procedure well without any convocation. Patient taken to the recovery room , discharged home after discharge criteria met
[2022-06-06] MEDS ORDERED: IV FLUID CONTINUATION 600 ML IV ONE (10:01)
[2022-06-06 10:24] VITALS: BP 119/69; PULSE 61
== END 2022-06-06 10:33 | disposition home or self-care (01) ==
LOC: ORPAIN 08:31
PROVIDERS: ATTEND Specialist
DX: G58.8 Other specified mononeuropathies (principal); G89.29 Other chronic pain; Z88.2 Allergy status to sulfonamides; Z88.8 Allergy status to other drugs, medicaments and biological substances
CPT/HCPCS: 20550; 64488; 99152; J2250; J1040; J3010; J2795

== ENCOUNTER → 2022-06-12 | Outpatient (CLI) | payer OTHER ==
--- NOTE | 2022-06-12 11:09 | CTL ---
EXAMINATION TYPE: CT Low Dose Lung DATE OF EXAM: 06/12/2022 11:03 AM CLINICAL INDICATION:Female, 61 years old with history of Z87.891 per hx nicotine dependence; Personal history of tobacco use. , history of tobacco use. COMPARISON: 10/02/2020, 06/11/2021 TECHNIQUE: Multiple axial non-contrast scans were obtained from approximately the lung apices through the upper abdomen. Coronal and sagittal reformatted images were obtained. Low dose technique was uti lized. CT DLP: 87 mGycm, Automated exposure control for dose reduction was used. CT Contrast: Contrast used: None Oral contrast used: None FINDINGS: ======== Lack of intravenous contrast and low dose technique limits the evaluation of the vascular and soft ti ssue structures. LUNGS: No evidence of pulmonary fibrosis. No evidence of focal consolidation, pneumothorax or pleural effusion. Nodules: RUL: None. RML: 4 mm nodule series 5 image 38, stable from 10/02/2020 when measuring similarly. RLL: None. YON: None. LLL: Stable subpleural nodule measuring 5 mm series 5 image 49. AIRWAY: Patent and unremarkable. HEART: Size within normal limits. Coronary artery calcifications are present. MEDIASTINUM: No gross evidence of adenopathy. VASCULATURE: No aortic aneurysm. Scattered atherosclerosis of the arterial vasculature. MUSCULOSKELETAL: No acute osseous abnormalities SOFT TISSUES/LYMPH NODES: Unremarkable. LOWER NECK: No significant findings. UPPER ABDOMEN: No significant findings. IMPRESSION: Stable pulmonary nodules. CT LUNG RAD AND CT CHEST RECOMMENDATION: Lung-Rad 2 Benign Appearance or Behavior: Continue annual sc reening with LDCT in 12 months. S Modifier (other clinically significant findings): None Recommend smoking cessation (if current smoker), or continuation of smoking cessation (if prior smoke r). Annual screening for lung cancer with low-dose computed tomography is recommended in adults ages 55 to 77 years who have a 30 pack-year smoking history and currently smoke or have quit within the pa st 15 years. Screening should be discontinued once a person has not smoked for 15 years or develops a health problem that substantially limits life expectancy or the ability or willingness to have curat teresa lung surgery. Lung rads 2021 [email or web address]
== END | disposition home or self-care (01) ==
LOC: RADCTMAIN 10:47
PROVIDERS: ATTEND Internal Medicine Hematology & Oncology
DX: Z12.2 Encounter for screening for malignant neoplasm of respiratory organs (principal); F17.210 Nicotine dependence, cigarettes, uncomplicated; R91.8 Other nonspecific abnormal finding of lung field
CPT/HCPCS: 71271

== ENCOUNTER → 2022-06-27 | Outpatient (CLI) | payer OTHER ==
[2022-06-27 12:09] VITALS: BP 128/72; PULSE 83; RESP 16; TEMP 98.3
--- NOTE | 2022-06-27 14:58 | P.PAINPG ---
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 Pt states she experienced 75% pain relief x 3 wks s/p procedure. Pain level is at 2/10 in intensity but escalates as high as 7/10 w provocation, constant, localized in the lower abdominal quadrants, dull/ achy in character without shooting pain. Pain is provoked by bending, lifting, over activity. Pain is alleviated with ice, topical pain patch, injections and rest. Interventional pain procedures completed include BL Rectus Abdominus N.B. Patient denies any side effects of the medication(s), denies excessive drows iness or sleepiness, denies suicidal ideation and reports that the current pain medication is helping to control the pain and improve activities of daily living. Patient denies any motor or sensory deficits. Patient denies any fever or night sweats, denies any change in the bowel movements or urination. Physical Examination: -Constitutional: Cooperative. Not in acute distress . - Neurologic: Cranial nerve II to XII intact. No focal neurological deficits. - Psychatric: Alert & oriented x 3. Matching mood & appropriate affect. Judgment and insight intact. - Musculoskeletal: Cervical spine: Muscle bulk/ tone/ strength in the bilateral upper extremities normal Vertebral body tenderness to palpation over Spurling test positive Distraction test positive Facet loading test positive TTP Thoracic spine Muscle bulk / tone/ strength in the bilateral paraspinal muscles normal Vertebral body tender to palpation over Facet loading test positive TTP Lumbar spine: Motor bulk/ tone/ strength lower extremities , thigh and legs : 5/5 Deep tendon reflexes : Normal Knee Jerk. Normal Ankle Jerk . 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 She may return to clinic on an as needed basis. All questions answered. I have spent less than 30 minutes on patient care today. Dr Baxter was available by phone for the evaluation of this patient. The time was used to review the medical records including relevant urine studies and Prescription history (MAPs), review of the available imaging, evaluation and examination of the patient, coordination of care with the medical staff and if applicable referring physicians, as well as creation of the medical record PQRS Narrative: Smoking Status Former smoker Hx Alcohol Use (MH) Yes Home Medications: Ambulatory Orders Atorvastatin Calcium [Lipitor] 20 mg PO QAM 05/06/14 Black Cohosh Root [Black Cohosh] 540 mg PO DAILY 05/06/14 Cholecalciferol [Vitamin D3] 5,000 unit PO HS 05/06/14 Escitalopram [Lexapro] 20 mg PO HS 05/06/14 Pregabalin [Lyrica] 75 mg PO TID 05/06/14 Bisoprolol Fumarate [Zebeta] 10 mg PO QAM 09/24/17 Levothyroxine Sodium [Levoxyl] 50 mcg PO SUTUWETHSA 09/24/17 Lidocaine 5% Patch [Lidoderm] 1 patch TOPICAL DAILY PRN 09/24/17 lisinopriL [Zestril] 10 mg PO QAM 09/24/17 Esomeprazole Magnesium [NexIUM] 20 mg PO QAM 10/06/18 Glucosam/Vijay-Msm1/C/Brent/Bosw [Jgjutwbkxln-Wwzsvmcpktj-RWA Tb] 1 each PO DAILY 07/26/19 Magnesium W/ Potassium 1 tab PO BID 07/26/19 Controlled Substance Measures - Controlled Substance Measures Is patient prescribed a controlled substance at discharge?: No
== END ==
LOC: PNWHC3 10:21
PROVIDERS: ATTEND Specialist
DX: R10.84 Generalized abdominal pain (principal); G58.9 Mononeuropathy, unspecified; Z87.891 Personal history of nicotine dependence; Z79.899 Other long term (current) drug therapy; Z88.2 Allergy status to sulfonamides; Z91.048 Other nonmedicinal substance allergy status; Z88.8 Allergy status to other drugs, medicaments and biological substances
CPT/HCPCS: 99211

== ENCOUNTER → 2023-04-07 | Outpatient (CLI) | payer OTHER ==
[2023-04-07 09:33] VITALS: BP 144/92; PULSE 76; RESP 15; TEMP 98.3
--- NOTE | 2023-04-07 14:36 | P.PAINPG ---
Objective - Vital Signs Vital signs: Intake & Output 04/06/23 04/07/23 04/07/23 18:59 06:59 18:59 Weight 83.915 kg PQRS Measure Charge Sheet Comment: A 62 yr old female with a history of severe and chronic RLQ/LLQ pain x 6 mo secondary to abdominal cutaneous nerve entrapment presents today for evaluation. Pain level is provoked at 7/10 w provocation, constant, localized in the lower abdominal quadrants, stabbing in character without shooting pain. Pain is pr ovoked by bending, lifting, over activity. Pain is alleviated with ice, topical pain patch, injections in the past and rest. Interventional pain procedures completed include BL Rectus Abdominus N.B. x1 Patient denies any side effects of the medication(s), denies excessive drowsiness or sleepiness, denies suicidal ideation and reports that the current pain medication is helping to control the pain and improve activities of daily living. Patient denies any motor or sensory deficits. Patient denies any fever or night sweats, denies any change in the bowel movements or urination. Physical Examination: -Constitutional: Cooperative. Not in acute distress . - Neurologic: Cranial nerve II to XII intact. No focal neurological deficits. - Psychatric: Alert & oriented x 3. Matching mood & appropriate affect. Judgment and insight intact. - Musculoskeletal: Cervical spine: Muscle bulk/ tone/ strength in the bilateral upper extremities normal Vertebral body tenderness to palpation over Spurling test positive Distraction test positive Facet loading test positive TTP Thoracic spine Muscle bulk / tone/ strength in the bilateral paraspinal muscles normal Vertebral body tender to palpation over Facet loading test positive TTP Lumbar spine: Motor bulk/ tone/ strength lower extremities , thigh and legs : 5/5 Deep tendon reflexes : Normal Knee Jerk. Normal Ankle Jerk . 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 May need a series of injections for optimal pain relief. Risks, benefits of procedure discussed and patient verbalized understanding. Protocol for discontinuation/continuation of medications surrounding procedure discussed.. All questions answered. I have spent less than 30 minutes on patient care today. Dr Baxter was available by phone for the evaluation of this patient. The time was used to review the medical records including relevant urine studies and Prescription history (MAPs), review of the available imaging, evaluation and examination of the patient, coordination of care with the medical staff and if applicable referring physicians, as well as creation of the medical record PQRS Narrative: Smoking Status Former smoker Hx Alcohol Use (MH) Yes Home Medications: Ambulatory Orders Atorvastatin Calcium [Lipitor] 20 mg PO QAM 05/06/14 Black Cohosh Root [Black Cohosh] 540 mg PO DAILY 05/06/14 Cholecalciferol [Vitamin D3] 5,000 unit PO HS 05/06/14 Escitalopram [Lexapro] 20 mg PO HS 05/06/14 Pregabalin [Lyrica] 75 mg PO TID 05/06/14 Bisoprolol Fumarate [Zebeta] 10 mg PO QAM 09/24/17 Levothyroxine Sodium [Levoxyl] 50 mcg PO SUTUWETHSA 09/24/17 Lidocaine 5% Patch [Lidoderm] 1 patch TOPICAL DAILY PRN 09/24/17 lisinopriL [Zestril] 10 mg PO QAM 09/24/17 Esomeprazole Magnesium [NexIUM] 20 mg PO QAM 10/06/18 Glucosam/Vijay-Msm1/C/Brent/Bosw [Mtxpfihhern-Ayyoqueoefa-ZSB Tb] 1 each PO DAILY 07/26/19 Magnesium W/ Potassium 1 tab PO BID 07/26/19 Controlled Substance Measures - Controlled Substance Measures Is patient prescribed a controlled substance at discharge?: No
== END ==
LOC: PNWHC3 09:08
PROVIDERS: ATTEND Specialist
DX: G58.9 Mononeuropathy, unspecified (principal); G89.29 Other chronic pain; Z87.891 Personal history of nicotine dependence; Z88.2 Allergy status to sulfonamides; Z88.1 Allergy status to other antibiotic agents; Z91.048 Other nonmedicinal substance allergy status
CPT/HCPCS: 99211

== ENCOUNTER 2023-04-17 06:23 | Day surgery (SDC) | payer OTHER ==
[2023-04-15 14:16] VITALS: BMI 27.4
[2023-04-17 06:51] VITALS: TEMP 97
[2023-04-17] MEDS: LACTATED RINGERS 1,000 ML IV SCH (07:20)
[2023-04-17] MEDS ORDERED: fentaNYL (PF) 50 MCG/ML 2 ML AMP ONE (07:34)
[2023-04-17] MEDS ORDERED: methylPREDNISolone ACETATE 80 MG/ML 1 ML VIAL ONE (07:34)
[2023-04-17] MEDS ORDERED: MIDAZOLAM 2 MG/2 ML VIAL ONE (07:34)
[2023-04-17] MEDS ORDERED: ROPIVACAINE 5MG/ML 20ML VIAL ONE (07:34)
--- NOTE | 2023-04-17 07:43 | P.PCN ---
Date of Procedure: 04/17/23 Procedure(s) Performed: Procedure= bilateral rectus sheath block under ultrasound guidance. Preoperative diagnosis= 1-chronic upper abdominal pain. 2- rectus sheath neuralgia.(Bilateral ) Postoperative diagnosis= same as preoperative diagnosis Complication = none Condition= stable Anesthesia= moderate sedation with intravenous Versed 2 mg , and fentanyl 50 micrograms and local infiltration with lidocaine 1% 4 mL Sedation the start time 07:34. Sedation end time 07:41 Indication for the procedure= patient complaining of chronic abdominal pain. Description of the procedure= procedure risk and benefits discussed with the patient, including but not limited, risk of infection and bleeding, and ALLERGIC reaction to the medication and not complete pain relief and patient agreed with the preceding patient taken to the operating room, placed in supine position or standard monitors applied to the patient then after induction of anesthesia back prepped with chlorhexidine 3 times , and under sterile technique first and in the right side. Rectus sheath block by advancing the 21-gauge Pujunk needle under ultrasound guidance advanced towards the posterior border of the rectus muscle on the right side, which is the location of the rectus sheath, then after negative aspiration for heme total of 10 ML of ropivacaine 0.5% mixed with 40 mg of Depo-Medrol injected at the posterior border of the right side the rectus muscle (location of the rectus sheath ), then the exact same procedure done for the left side, and I did the left side rectus sheath the block, the patient tolerated the procedure well without any convocation. Patient taken to the recovery room , discharged home after discharge criteria met
[2023-04-17] MEDS: IV FLUID CONTINUATION 600 ML IV ONE (07:47)
[2023-04-17 07:53] VITALS: RESP 18
[2023-04-17 08:26] VITALS: BP 109/69; PULSE 67
== END 2023-04-17 08:18 | disposition home or self-care (01) ==
LOC: ORPAIN 06:23
PROVIDERS: ATTEND Specialist
DX: G58.9 Mononeuropathy, unspecified (principal); G89.29 Other chronic pain; Z88.8 Allergy status to other drugs, medicaments and biological substances
CPT/HCPCS: 20550; 99152; J2250; J1040; J3010; J2795

== ENCOUNTER → 2023-05-07 | Outpatient (CLI) | payer OTHER ==
[2023-05-07 10:00] VITALS: BP 165/100; PULSE 89; RESP 15; TEMP 97.3
--- NOTE | 2023-05-07 12:41 | P.PAINPG ---
PQRS Measure Charge Sheet Comment: A 62 yr old female with a history of severe and chronic RLQ/LLQ pain x 6 mo secondary to abdominal cutaneous nerve entrapment presents today for evaluation s/p BL Rectus Sheath Block #2. Pt states she experienced 80 % pain relief x 3 wks s/p procedure. Pain level is provoked at 2 /10 w provocation, constant, localized in the lower abdominal quadrants, stabbing in character without shooting pain. Pain is provoked by bending, lifting, over activity. Pain is alleviated with ice, topical pain patch, injections in the past and rest. Interventional pain procedures completed include BL Rectus Abdominus x2 Patient denies any side effects of the medication(s), denies excessive drowsiness or sleepiness, denies suicidal ideation and reports that the current pain medication is helping to control the pain and improve activities of daily living. Patient denies any motor or sensory deficits. Patient denies any fever or night sweats, denies any change in the bowel movements or urination. Physical Examination: -Constitutional: Cooperative. Not in acute distress . - Neurologic: Cranial nerve II to XII intact. No focal neurological deficits. - Psychatric: Alert & oriented x 3. Matching mood & appropriate affect. Judgment and insight intact. - Musculoskeletal: Cervical spine: Muscle bulk/ tone/ strength in the bilateral upper extremities normal Vertebral body tenderness to palpation over Spurling test positive Distraction test positive Facet loading test positive TTP Thoracic spine Muscle bulk / tone/ strength in the bilateral paraspinal muscles normal Vertebral body tender to palpation over Facet loading test positive TTP Lumbar spine: Motor bulk/ tone/ strength lower extremities , thigh and legs : 5/5 Deep tendon reflexes : Normal Knee Jerk. Normal Ankle Jerk . 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 All questions answered. I have spent less than 30 minutes on patient care today. Dr Baxter was available by phone for the evaluation of this patient. The time was used to review the medical records including relevant urine studies and Prescription history (MAPs), review of the available imaging, evaluation and examination of the patient, coordination of care with the medical staff and if applicable referring physicians, as well as creation of the medical record PQRS Narrative: Smoking Status Former smoker Hx Alcohol Use (MH) Yes Home Medications: Ambulatory Orders Atorvastatin Calcium [Lipitor] 20 mg PO QAM 05/06/14 Black Cohosh Root [Black Cohosh] 540 mg PO DAILY 05/06/14 Cholecalciferol [Vitamin D3] 5,000 unit PO HS 05/06/14 Escitalopram [Lexapro] 20 mg PO HS 05/06/14 Pregabalin [Lyrica] 75 mg PO TID 05/06/14 Bisoprolol Fumarate [Zebeta] 10 mg PO QAM 09/24/17 Levothyroxine Sodium [Levoxyl] 50 mcg PO SUTUWETHSA 09/24/17 Lidocaine 5% Patch [Lidoderm] 1 patch TOPICAL DAILY PRN 09/24/17 lisinopriL [Zestril] 10 mg PO QAM 09/24/17 Esomeprazole Magnesium [NexIUM] 20 mg PO QAM 10/06/18 Glucosam/Vijay-Msm1/C/Brent/Bosw [Wromjhwroim-Onaqbubpnbt-ZRA Tb] 1 each PO DAILY 07/26/19 Magnesium W/ Potassium 1 tab PO BID 07/26/19 Controlled Substance Measures - Controlled Substance Measures Is patient prescribed a controlled substance at discharge?: No
== END ==
LOC: PNWHC3 09:13
PROVIDERS: ATTEND Specialist
DX: G89.29 Other chronic pain (principal); G58.9 Mononeuropathy, unspecified; Z87.891 Personal history of nicotine dependence; Z88.2 Allergy status to sulfonamides; Z88.1 Allergy status to other antibiotic agents; Z91.048 Other nonmedicinal substance allergy status
CPT/HCPCS: 99211

== ENCOUNTER → 2023-06-13 | Outpatient (CLI) | payer OTHER ==
--- NOTE | 2023-06-13 12:51 | CTL ---
EXAMINATION TYPE: CT Low Dose Lung DATE OF EXAM ORDERED: 06/13/2023 HISTORY: 62-year-old female Z12.2. Lung cancer screening. Current smoker with 24 pack-year history. CT DLP: 93.[address] CTDI: 2.4 mGy Automated exposure control for dose reduction was used. SCREENING VISIT: Annual follow-up COMPARISON: 06/12/2022 TECHNIQUE: Low dose computed tomography scan was performed through the chest with coronal and sagitta l reconstructions. CT DIAGNOSTIC QUALITY: Satisfactory FINDINGS: Heart normal size without pericardial effusion. LAD and RCA coronary calcifications are present. 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 Scattered nonenlarged mediastinal lymph nodes. No thoracic lymphadenopathy by CT size criteria. Mild diffuse bronchial wall thickening. Minimal emphysematous change in the visualized upper lungs. M ild biapical pleural-parenchymal scarring. No consolidation or pleural effusion. A 4 mm anterior right midlung pulmonary nodule, axial image 144 is unchanged. Tiny 2 mm pulmonary nodule lateral right base, axial image 205 is unchanged. Visualized upper abdomen shows cholecystectomy clips and some calcifications and suspected small port acaval lymph node. Probably relating to prior granulomatous disease. Bones: Osseous destructive process. IMPRESSION: 1. LungRADS 2, benign. A couple stable pulmonary nodules measuring up to 4 mm. 2. COPD with mild emphysema. Recommend smoking cessation. 3. Incidental aberrant right subclavian artery that takes a retroesophageal course. CT LUNG RAD AND CT CHEST RECOMMENDATION: Lung-Rad 2 Benign Appearance or Behavior: Continue annual sc reening with LDCT in 12 months. S Modifier (other clinically significant findings): None
== END | disposition home or self-care (01) ==
LOC: RADCTMAIN 10:27
PROVIDERS: ATTEND Internal Medicine Hematology & Oncology
DX: Z12.2 Encounter for screening for malignant neoplasm of respiratory organs (principal); J43.9 Emphysema, unspecified; J44.9 Chronic obstructive pulmonary disease, unspecified; Z87.891 Personal history of nicotine dependence; R91.8 Other nonspecific abnormal finding of lung field
CPT/HCPCS: 71271

== ENCOUNTER → 2024-03-04 | Outpatient (CLI) | payer OTHER ==
[2024-03-04 09:02] VITALS: BP 144/95; PULSE 57; RESP 18; TEMP 98.1
--- NOTE | 2024-03-04 15:01 | P.PAINPG ---
Objective - Vital Signs Vital signs: Intake & Output 03/03/24 03/04/24 03/04/24 18:59 06:59 18:59 Weight 155 kg PQRS Measure Charge Sheet Comment: A 63 yr old female with a history of severe and chronic RLQ/LLQ pain x 6 mo secondary to abdominal cutaneous nerve entrapment presents today for evaluation. Pain level is provoked at 9 /10 w provocation, constant, localized in the upper abdominal quadrants, stabbing in character without shooting pain. Pain is prov oked by bending, lifting, over activity. Pain is alleviated with ice, topical pain patch, injections in the past and rest. Interventional pain procedures completed include Abd Surgery, BL Rectus Abdo minus x2 Patient denies any side effects of the medication(s), denies excessive drowsiness or sleepiness, denies suicidal ideation and reports that the current pain medication is helping to control the pain and improve activities of daily living. Patient denies any motor or sensory deficits. Patient denies any fever or night sweats, denies any change in the bowel movements or urination. Physical Examination: -Constitutional: Cooperative. Not in acute distress . - Neurologic: Cranial nerve II to XII intact. No focal neurological deficits. - Psychatric: Alert & oriented x 3. Matching mood & appropriate affect. Judgment and insight intact. - Musculoskeletal: Cervical spine: Muscle bulk/ tone/ strength in the bilateral upper extremities normal Vertebral body tenderness to palpation over Spurling test positive Distraction test positive Facet loading test positive TTP Thoracic spine Muscle bulk / tone/ strength in the bilateral paraspinal muscles normal Vertebral body tender to palpation over Facet loading test positive TTP Lumbar spine: Motor bulk/ tone/ strength lower extremities , thigh and legs : 5/5 Deep tendon reflexes : Normal Knee Jerk. Normal Ankle Jerk . 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 Risks, benefits of procedure discussed and pt verbalized understanding. Protocol for discontinuation/ continuation of medications ana cristina procedure discussed. Minimal anesthesia including Fentanyl and Versed if clinically indicated. All questions answered. I have spent less than 30 minutes on patient care today. Dr Baxter was available by phone for the evaluation of this patient. The time was used to review the medical records including relevant urine studies and Prescription history (MAPs), review of the available imaging, evaluation and examination of the patient, coordination of care with the medical staff and if applicable referring physicians, as well as creation of the medical record PQRS Narrative: Smoking Status Former smoker Hx Alcohol Use (MH) Yes Home Medications: Ambulatory Orders Atorvastatin Calcium [Lipitor] 20 mg PO QAM 05/06/14 Black Cohosh Root [Black Cohosh] 540 mg PO DAILY 05/06/14 Cholecalciferol [Vitamin D3] 5,000 unit PO HS 05/06/14 Escitalopram [Lexapro] 20 mg PO HS 05/06/14 Pregabalin [Lyrica] 75 mg PO TID 05/06/14 Bisoprolol Fumarate [Zebeta] 10 mg PO QAM 09/24/17 Levothyroxine Sodium [Levoxyl] 50 mcg PO SUTUWETHSA 09/24/17 Lidocaine 5% Patch [Lidoderm] 1 patch TOPICAL DAILY PRN 09/24/17 lisinopriL [Zestril] 10 mg PO QAM 09/24/17 Esomeprazole Magnesium [NexIUM] 20 mg PO QAM 10/06/18 Glucosam/Vijay-Msm1/C/Brent/Bosw [Jjfkadgkucc-Khqzoobnsbr-EAN Tb] 1 each PO DAILY 07/26/19 Magnesium W/ Potassium 1 tab PO BID 07/26/19 Controlled Substance Measures - Controlled Substance Measures Is patient prescribed a controlled substance at discharge?: No
== END ==
LOC: PNWHC3 08:42
PROVIDERS: ATTEND Specialist
DX: G58.0 Intercostal neuropathy (principal); R10.32 Left lower quadrant pain; G89.29 Other chronic pain; Z88.2 Allergy status to sulfonamides; Z88.1 Allergy status to other antibiotic agents; Z91.09 Other allergy status, other than to drugs and biological substances; Z87.891 Personal history of nicotine dependence
CPT/HCPCS: 99211

== ENCOUNTER 2024-03-18 08:39 | Day surgery (SDC) | payer OTHER ==
[2024-03-18 08:59] VITALS: TEMP 97
[2024-03-18] MEDS: LACTATED RINGERS 1,000 ML IV SCH (09:08)
[2024-03-18] MEDS: IV FLUID CONTINUATION 1,000 ML IV ONE ×2 (09:08→10:05)
[2024-03-18] MEDS ORDERED: ROPIVACAINE 5MG/ML 20ML VIAL ONE (09:49)
[2024-03-18] MEDS ORDERED: MIDAZOLAM 2 MG/2 ML VIAL ONE (09:49)
[2024-03-18] MEDS ORDERED: fentaNYL (PF) 50 MCG/ML 2 ML AMP ONE (09:49)
[2024-03-18] MEDS ORDERED: methylPREDNISolone ACETATE 80 MG/ML 1 ML VIAL ONE (09:49)
--- NOTE | 2024-03-18 10:00 | P.PCN ---
Date of Procedure: 03/18/24 Procedure(s) Performed: Procedure= bilateral rectus sheath block under ultrasound guidance. Preoperative diagnosis= 1-chronic upper abdominal pain. 2- rectus sheath neuralgia.(Bilateral ) Postoperative diagnosis= same as preoperative diagnosis Complication = none Condition= stable Anesthesia= moderate sedation with intravenous Versed 2 mg , and fentanyl 50 micrograms and local infiltration with lidocaine 1% 4 mL Sedation the start time 09:49. Sedation end time 09:51 Indication for the procedure= patient complaining of chronic abdominal pain. Description of the procedure= procedure risk and benefits discussed with the patient, including but not limited, risk of infection and bleeding, and ALLERGIC reaction to the medication and not complete pain relief and patient agreed with the preceding patient taken to the operating room, placed in supine position or standard monitors applied to the patient then after induction of anesthesia back prepped with chlorhexidine 3 times , and under sterile technique first and in the right side. Rectus sheath block by advancing the 21-gauge Pujunk needle under ultrasound guidance advanced towards the posterior border of the rectus muscle on the right side, which is the location of the rectus sheath, then after negative aspiration for heme total of 12 ML of ropivacaine 0.5% mixed with 40 mg of Depo-Medrol injected at the posterior border of the right side the rectus muscle (location of the rectus sheath ), then the exact same procedure done for the left side, and I did the left side rectus sheath the block, the patient tolerated the procedure well without any convocation. Patient taken to the recovery room , discharged home after discharge criteria met
[2024-03-18 10:11] VITALS: RESP 16
[2024-03-18 10:27] VITALS: BP 126/73; PULSE 61
== END 2024-03-18 10:33 | disposition home or self-care (01) ==
LOC: ORPAIN 08:39
PROVIDERS: ATTEND Specialist
DX: G58.8 Other specified mononeuropathies (principal); R10.10 Upper abdominal pain, unspecified; Z88.2 Allergy status to sulfonamides; Z91.048 Other nonmedicinal substance allergy status
CPT/HCPCS: 64488; J2250; J3010; J2795; J1010; 20550

== ENCOUNTER → 2024-06-10 | Outpatient (CLI) | payer OTHER ==
--- NOTE | 2024-06-10 15:52 | US ---
EXAMINATION TYPE: US pelvis complete transvag DATE OF EXAM: 06/10/2024 COMPARISON: CT scan of pelvis 04/11/2015 CLINICAL INDICATION: Female, 63 years old with history of N93.9 ABNORMAL UTERINE AND VAGINAL BLEEDING ; abnormal bleeding x 5 weeks on and off. TECHNIQUE: Transvaginal (TV) and Transabdominal (TA) . Transabdominal grayscale sonographic images of the pelvis were acquired. Transvaginal sonographic im ages were medically necessary to better assess the following anatomy: ovaries Doppler imaging: Not performed. FINDINGS: Date of LMP: 12 years ago EXAM MEASUREMENTS: Uterus: 8.0 x 4.1 x 3.6 cm Endometrial Stripe: 0.4 cm Right Ovary: 2.0 x 1.4 x 1.4 cm Left Ovary: not seen 1. Uterus: Anteverted hypoechoic area seen near lower uterine segment measuring 1.9 x 1.6 x 1.1cm. Calcified area seen at fundus measuring 2.2 x 2.1 x 1.4cm 2. Endometrium: wnl 3. Right Ovary: wnl 4. Left Ovary: not seen due to bowel gas 5. Bilateral Adnexa: wnl 6. Posterior cul-de-sac: wnl Antegrade uterus with hypoechoic lesion seen near the lower uterine segment measuring up to 1.9 cm. A dditional calcified area seen at the fundus with shadowing measuring up to 2.2 cm. These are both con sistent with fibroids. Endometrium is within normal limits. Right ovary appears within normal limits. Left ovary is not visualized due to overlying bowel gas. No free fluid. IMPRESSION: 1. No ultrasound evidence for acute pelvic process. 2. Fibroid changes of the uterus. 3. Nonvisualization of the left ovary due to overlying bowel gas. [facility], , 06/10/2024 3:50 PM
== END | disposition home or self-care (01) ==
LOC: RADUSWWP 15:08
PROVIDERS: ATTEND Internal Medicine Geriatric Medicine
DX: D25.9 Leiomyoma of uterus, unspecified (principal); N93.9 Abnormal uterine and vaginal bleeding, unspecified
CPT/HCPCS: 76830; 76856

== ENCOUNTER → 2024-06-14 | Outpatient (CLI) | payer OTHER ==
--- NOTE | 2024-06-14 11:23 | CTL ---
EXAMINATION TYPE: CT Low Dose Lung DATE OF EXAM: 06/14/2024 10:59 AM COMPARISON: 06/13/2023. CLINICAL INDICATION: Female, 63 years old with history of Z12.2 ENCNTR SCREEN FOR MALIGNANT NEOPLASM OF RESP; PT QUIT SMOKING 3 MONTHS AG0, HX OF HTN, history of tobacco use. TECHNIQUE: Multiple axial non-contrast scans were obtained from approximately the lung apices through the upper abdomen. Coronal and sagittal reformatted images were obtained. Low dose technique was uti lized. MIP were created on a separate workstation and submitted for review. CT DLP: 80 mGycm, Automated exposure control for dose reduction was used. CT Contrast: Contrast used: None Oral contrast used: None FINDINGS: Lack of intravenous contrast and low dose technique limits the evaluation of the vascular and soft ti ssue structures. LUNGS: No evidence of pulmonary fibrosis. No evidence of focal consolidation, pneumothorax or pleural effusion. Centrilobular emphysema changes. Nodules: RUL: None. RML: 3 mm pulmonary nodule series 9 image 39, stable. RLL: 2 mm series 3 image 192, stable. YON: None. LLL: None. AIRWAY: Patent and unremarkable. HEART: Size within normal limits. Mild coronary artery calcifications present. MEDIASTINUM: No gross evidence of adenopathy. VASCULATURE: No aortic aneurysm. Aberrant course of the right subclavian artery posterior to the eso phagus. MUSCULOSKELETAL: No acute osseous abnormalities SOFT TISSUES/LYMPH NODES: Unremarkable. LOWER NECK: No significant findings. UPPER ABDOMEN: No significant findings. IMPRESSION: 1. No clinically significant pulmonary nodules. 2. Mild emphysema. CT LUNG RAD AND CT CHEST RECOMMENDATION: Lung-Rad 2 Benign Appearance or Behavior: Continue annual sc reening with LDCT in 12 months. S Modifier (other clinically significant findings): None Recommend smoking cessation (if current smoker), or continuation of smoking cessation (if prior smoke r). Annual screening for lung cancer with low-dose computed tomography is recommended in adults ages 55 to 77 years who have a 30 pack-year smoking history and currently smoke or have quit within the pa st 15 years. Screening should be discontinued once a person has not smoked for 15 years or develops a health problem that substantially limits life expectancy or the ability or willingness to have curat teresa lung surgery. Lung rads 2021 [email or web address] [facility], , 06/14/2024 11:21 AM
== END | disposition home or self-care (01) ==
LOC: RADCTMAIN 10:18
PROVIDERS: ATTEND Internal Medicine Hematology & Oncology
DX: Z12.2 Encounter for screening for malignant neoplasm of respiratory organs (principal); F17.210 Nicotine dependence, cigarettes, uncomplicated; J43.2 Centrilobular emphysema
CPT/HCPCS: 71271

== ENCOUNTER → 2024-07-13 | Outpatient (CLI) | payer OTHER ==
[2024-07-13 15:16] LABS: African American GFR (CKD) >90 (>60 ml/min/1.73 sqM); Blood Urea Nitrogen 14 mg/dL (7-17); Non-African American GFR(CKD) >90 (>60 ml/min/1.73 sqM)
--- NOTE | 2024-07-13 16:45 | CT ---
EXAMINATION TYPE: CT abdomen pelvis w con CT DLP: 910.80 mGycm, Automated exposure control for dose reduction was used. DATE OF EXAM: 07/13/2024 4:37 PM COMPARISON: CT abdomen 02/24/2020, CT abdomen and pelvis 04/11/2015 CLINICAL INDICATION:Female, 63 years old with history of R18.8 R109 D472 R911; VAGINAL SPOTTING, MID ABDOMINAL PAIN/ BLOATING, BACK PAIN SINCE MARCH 2024 TECHNIQUE: Standard CT of the abdomen and pelvis following the administration of 100 cc of Isovue 3 00 IV contrast material and oral contrast. Coronal and sagittal reformats were performed. FINDINGS: LOWER CHEST: Minimal subsegmental atelectasis within the right middle lobe. ABDOMEN LIVER: Unremarkable GALLBLADDER AND BILE DUCTS: The gallbladder is surgically absent. No biliary ductal dilatation. PANCREAS: No pancreatic ductal dilatation or inflammatory changes. No focal lesion. A few parenchymal calcifications within the head. SPLEEN: Unremarkable. ADRENAL GLANDS: Unremarkable. KIDNEYS AND URETERS: No evidence of hydronephrosis or renal calculus. The kidneys enhance symmetrical ly. Contrast is demonstrated within both collecting systems and proximal ureters on the delayed phase . PELVIS BLADDER: Unremarkable REPRODUCTIVE: Unremarkable. ABDOMEN & PELVIS STOMACH AND BOWEL: Stomach and duodenum are unremarkable. Enteric contrast reaches the descending col on. No focal bowel wall thickening or surrounding inflammatory changes. The appendix is within normal limits. The hepatic flexure is demonstrated anterior to the liver margin. No evidence of bowel obstr uction. PERITONEUM: No evidence of pneumoperitoneum or free fluid. VASCULATURE: Mild atherosclerotic calcifications are present throughout the abdominal aorta and its b ranches. No evidence of aortic aneurysm. MUSCULOSKELETAL: No acute osseous abnormalities LYMPH NODES: No evidence for lymphadenopathy. SOFT TISSUE/ABDOMINAL WALL: Tiny fat filled umbilical hernia. IMPRESSION: 1. No CT evidence for acute abdominal/pelvic process. 2. Findings of chronic pancreatitis. [facility], , 07/13/2024 4:43 PM
== END | disposition home or self-care (01) ==
LOC: RADCTMAIN 14:33
PROVIDERS: ATTEND Internal Medicine Hematology & Oncology
DX: K86.1 Other chronic pancreatitis (principal); I10 Essential (primary) hypertension; R91.1 Solitary pulmonary nodule; D47.2 Monoclonal gammopathy; E03.9 Hypothyroidism, unspecified; R18.8 Other ascites; F17.210 Nicotine dependence, cigarettes, uncomplicated; Z71.3 Dietary counseling and surveillance
CPT/HCPCS: 82565; 84520; 74177; 36415; Q9967